=== PATIENT | male | born 1970 | race Caucasian/White ===

== ENCOUNTER 2016-03-27 12:48 | Outpatient (RCR) | payer OTHER ==
--- OUTSIDE RECORDS SUMMARY | 2016-02-12 09:40 | XMS REPORT | Continuity of Care Document ---
Author Author [facility] Organization [facility] Address Unknown Phone Unavailable Care Team Providers Care Tile Molder Name Role Phone Unknown, Unknown PCP Unavailable Source Comments Some departments are not documenting in the electronic medical record. If you do not see the information that you expected, contact Release of Information in the Health Information Management department at [phone] for further assistance in locating additional records.[facility] Active Allergies and Adverse Reactions Allergen Noted Date Severity Reactions Comments Sulfa (Sulfonamide 09/22/2014 High ANAPHYLAXIS Antibiotics) Current Medications Prescription Sig. Disp. Refills Start End Date Status Date OMEPRAZOLE PO Take by mouth daily. Active MONTELUKAST SODIUM Take by mouth daily. Active (SINGULAIR PO) amLODIPine (NORVASC) 5 mg Take 5 mg by mouth daily. Active tablet OMALIZUMAB (XOLAIR SC) Inject into area(s) as Active directed every 14 days. predniSONE (DELTASONE) 10 Take 10 mg by mouth every Active mg tablet 48 hours. cetirizine (ZYRTEC) 10 mg Take 10 mg by mouth every Active tablet morning. fluticasone (FLOVENT HFA) Inhale 2 Puffs by mouth 1 Inhaler 0 Active 220 mcg/actuation inhaler into the lungs as Needed. 16 fluticasone/salmeterol Inhale 1 Puff by mouth 3 Inhaler 0 01/29/20 Active (ADVAIR DISKUS) 500-50 into the lungs as Needed. 16 mcg inhalation disk albuterol-ipratropium Inhale 3 mL solution by 01/29/20 Active (DUO-NEB, DUO-VENT) 0.5 nebulizer as directed as 16 mg-3 mg(2.5 mg base)/3 mL Needed. nebulizer solution albuterol (VENTOLIN HFA, Inhale 2 Puffs by mouth 3 Inhaler 01/29/20 Active PROAIR HFA, PROVENTIL into the lungs every 6 16 HFA) 90 mcg/actuation hours as needed for inhaler Wheezing. albuterol (VENTOLIN HFA, Inhale 2 Puffs by mouth 01/29/20 Discontin PROAIR HFA) 90 every 6 hours as needed 16 ued mcg/actuation inhaler for Wheezing. CETIRIZINE HCL (ZYRTEC Take by mouth. 01/29/20 Discontin PO) 16 ued albuterol-ipratropium Inhale 3 mL solution by 01/29/20 Discontin (DUO-NEB, DUO-VENT) 0.5 nebulizer as directed as 16 ued mg-3 mg(2.5 mg base)/3 mL Needed. nebulizer solution fluticasone (FLOVENT HFA) Inhale 2 Puffs by mouth 1 Inhaler 3 01/29/20 Discontin 220 mcg/actuation inhaler twice daily. 16 16 ued fluticasone/salmeterol Inhale 1 Puff by mouth 01/29/20 Discontin (ADVAIR DISKUS) 500-50 into the lungs as Needed. 16 ued mcg inhalation disk predniSONE (DELTASONE) 10 60mg daily x 5 days, then 75 Tab 0 12/21/19 01/29/20 Discontin mg tablet 50mg daily x 3 days, then 16 16 ued decrease by 10mg every 3 days until off. levofloxacin (LEVAQUIN) Take 1 Tab by mouth 14 Tab 1 12/21/19 Discontin 750 mg tablet daily. 16 16 ued Active Problems Problem Noted Date Severe persistent asthma dependent on systemic steroids 01/29/2016 Last Assessment & Plan: Massive improvement both symptomatically and on spirometry while taking prednisone. Discussed importance of maintenance medications. He has failed maximal medical therapy including Advair 500/50 BID, fluticasone 220 BID, Singulair 10 mg po qd, Zyrtec 10 mg, and Xolair. Despite these medications he had a severe exacerbation at his last visit requiring antibiotics and prednisone. He has continued his prednisone and feels better however he has taken himself off his controller medications. I advised him on the importance of continuing all his controller medication as the bronchial thermoplasty requires 3 sessions with 2 weeks in between each session. He is agreeable to have bronchothermoplasty the week of Mar 17. Given his age I do not think chronic prednisone is a viable option given all the complications known to be associated with chronic prednisone therapy. -Alpha one pending -Restart Yu Cox -Continue singulair -BT Mar 17 Mild persistent asthma without complication 09/29/2014 Overview: Outside records reviewed. Methacholine positive for decrease then improvement after albuterol. L ast Assessment & Plan: Markedly worsened PFTs including Diffusion. Possible pneumonia but I hear no crackles on exam. Concern for asthma exacerbation. Offered admission but he declined. Will attempt to get CT scan precertified today given his Status. Doubt PE as he is not hypoxic. Interested in getting a non con CT chest to rule out hypersensitivity pneumonitis. -Prednisone 60 mg po qd -Levaquin 750 mg po qd. Most Recent Encounters Date Type Specialty Providers Description 03/17/2016 [facility] Pk Vega MD Severe persistent asthma Encounter 02/06/2016 Telephone Pulmonology Pk Vega MD Other - bronchial thermoplasty 02/04/2016 Telephone Pulmonology Pk Vega MD Results - normal Alpha 1 Antitrypsin level 02/04/2016 Telephone Pulmonology Pk Vega MD Prior Authorization - Bronchial Thermoplasty 01/29/2016 Office Visit Pulmonology Pk Vega MD Mild persistent asthma without complication (Primary Dx); Severe persistent asthma dependent on systemic steroids 01/29/2016 [facility] Pk Vega MD Emphysema, unspecified Encounter 01/29/2016 Prep for Case Pulmonology Pk Vega MD 12/25/2015 Telephone PulPk Maravilla MD Follow-up Phone Call 12/21/2015 [facility]iology Pk Veag MD Encounter 12/21/2015 Office Visit PulPk Maravilla MD Pneumonia due to infectious organism, unspecified laterality, unspecified part of lung (Primary Dx) 12/21/2015 [facility] Pk Vega MD Encounter 12/04/2015 Telephone Pk Clemens MD Follow-up Phone Call Social History Tobacco Use Types Packs/Day Years Used Date Former Smoker Cigarettes Quit: 04/20/1997 Last Filed Vital Signs Vital Sign Reading Time Taken Blood Pressure 140/93 01/29/2016 9:58 AM CDT Pulse 69 01/29/2016 9:58 AM CDT Temperature 36.6 C (97.8 F) 01/29/2016 9:58 AM CDT Respiratory Rate 16 01/29/2016 9:58 AM CDT Height 1.88 m (6' 2") 01/29/2016 9:58 AM CDT Weight 102.059 kg (225 lb) 01/29/2016 9:58 AM CDT Body Mass Index 28.88 01/29/2016 9:58 AM CDT Oxygen Saturation 96% 01/29/2016 9:58 AM CDT Plan of Care Date Type Specialty Providers Description 03/17/2016 Surgery Pk Vega MD Canceled BRONCHOSCOPY [address] [address] [place] [address] [phone] (Fax) Health Maintenance Due Date Last Done Comments Physical (Comprehensive) 09/26/1978 Exam Pertussis Vaccine 09/26/1982 Tetanus Vaccine 09/26/1988 Influenza Vaccine 12/20/2015 Procedures from Last 3 Months Procedure Name Priority Date/Time Associated Diagnosis Comments SPIROMETRY Routine 01/29/2016 Mild persistent asthma 12:00 AM CDT without complication Results from Last 3 Months ALPHA 1 ANTITRYPSIN PHENOTYPE (01/29/2016 9:09 AM) Component Value Range Alpha 1 Anti-Trypsin 137Comment: Reference range: 100 to 190 Unit: mg/dL [facility] Alpha 1 Antitrypsin MM Phenotype Unit: bands A single M isoform is detected. In the context of a normal [id number] concentration, this is consistent with an MM phenotype. [facility] Specimen Blood SPIROMETRY (01/29/2016)CHEST 2 VIEWS (12/21/2015 4:51 PM) Impressions Small left pleural effusion with development of interstitial opacities throughout both lungs, greatest in the left lower lobe, likely pneumonia. Approved by Adrienne Diana M.D. on 12/21/2015 5:26 PM By my electronic signature, I attest that I have personally reviewed the images for this examination and formulated the interpretations and opinions expressed in this report Finalized by JIAN ERWIN M.D. on 12/21/2015 5:26 PM. Dictated by Adrienne Diana M.D. on 12/21/2015 5:00 PM. Narrative CHEST 2 VIEWS Clinical Indication:pneumonia. Comparison: Chest radiograph dated September 29, 2014. Findings: JIAN ERWIN M.D. has personally reviewed these images and formulated the interpretations and opinions expressed in this report. The cardiac silhouette and pulmonary vasculature are within normal limits. There has been development of bilateral lower lobe interstitial opacities, greater on the left, and mild blunting of the left costophrenic angle. No pneumothorax is identified. Procedure Note Interface, Radiant Results - ThuDec 21, 2015 5:29 PM CDT CHEST 2 VIEWS Clinical Indication: pneumonia. Comparison: Chest radiograph dated September 29, 2014. Findings: JIAN ERWIN M.D. has personally reviewed these images and formulated the interpretations and opinions expressed in this report. The cardiac silhouette and pulmonary vasculature are within normal limits. There has been development of bilateral lower lobe interstitial opacities, greater on the left, and mild blunting of the left costophrenic angle. No pneumothorax is identified. IMPRESSION Small left pleural effusion with development of interstitial opacities throughout both lungs, greatest in the left lower lobe, likely pneumonia. Approved by Adrienne Diana M.D. on 12/21/2015 5:26 PM By my electronic signature, I attest that I have personally reviewed the images for this examination and formulated the interpretations and opinions expressed in this report Finalized by JIAN ERWIN M.D. on 12/21/2015 5:26 PM. Dictated by Adrienne Diana M.D. on 12/21/2015 5:00 PM.
[2016-02-12] MEDS: OMALIZUMAB SUB-Q 150 MG (XOLAIR) VIAL SQ SCH (10:32)
[2016-02-12 10:33] VITALS: BP 147/92
[2016-02-27] MEDS: OMALIZUMAB SUB-Q 150 MG (XOLAIR) VIAL SQ SCH (14:05)
[2016-02-27 14:10] VITALS: BP 142/89
[2016-03-12 13:25] VITALS: BP 139/95
[2016-03-12] MEDS: OMALIZUMAB SUB-Q 150 MG (XOLAIR) VIAL SQ SCH (13:27)
[~2016-03-27] VITALS: Ht 188 cm; Wt 98.9 kg
[~2016-03-27 12:48] MED LIST: AGM875T PO; ALBU17AE3 IH; ALBU8.5HRX IH; AMLO5TAB4 PO; AMOX-355 PO; BENZ200C25 PO; BUDE10.2 IH; CETI10CA PO; CLAR500T2 PO; DOCU-143 PO; FLT05NA16 NS; FLT4413 IH; FLUC150T PO; FLUT1DIS27 IH; FLUT9.9S NSEACH; GFN600TCR PO; GUAI473L8 PO; HYDR-3454 PO; IPRA3AMP IH; IPRA3AMP11 IH; LEVO500T69 PO; METH4TAB PO; MONT10TA21 PO; NAPR-1033 PO; OMEP20TA7 PO; ONDA8TAB13 PO; OSLT75C PO; PRD10T PO; PRED20TA PO; RT-ADVAIR1 IH; TIOT18CA2 IH
[2016-03-27] MEDS: OMALIZUMAB SUB-Q 150 MG (XOLAIR) VIAL SQ SCH (13:18)
[2016-03-27 13:34] VITALS: BP 140/96
== END 2016-05-12 | disposition home or self-care (01) ==
LOC: SDC 12:48
PROVIDERS: ATTEND Internal Medicine Critical Care Medicine
DX: J45.20 Mild intermittent asthma, uncomplicated (principal)
CPT/HCPCS: 96372

== ENCOUNTER → 2017-04-10 | Outpatient (CLI) | payer OTHER ==
--- NOTE | 2017-04-10 11:24 | Diagnostic Imaging Report ---
PROCEDURE: US Gallbladder. TECHNIQUE: Multiple real-time grayscale images were obtained over the right upper quadrant in various projections. INDICATION: Abdominal pain. FINDINGS: The visualized portions of the pancreas appear unremarkable. The liver is fairly homogeneous with no focal lesion. Hepatopetal flow in the portal vein is seen. The gallbladder demonstrates no stones or wall thickening. The CBD is 4 mm in caliber. The right kidney is 13.3 cm in length with no hydronephrosis or focal lesion. No fluid collection in the upper right abdomen is seen. Sonographic Galloway's sign is reportedly negative. IMPRESSION: Unremarkable exam. Dictated by: Dictated on workstation # [id number]
== END ==
LOC: RAD 08:17
PROVIDERS: ATTEND Nurse Practitioner Family
DX: R10.11 Right upper quadrant pain (principal)
CPT/HCPCS: 76705

== ENCOUNTER → 2017-04-22 | Outpatient (CLI) | payer OTHER ==
[~2017-04-22] MED LIST changes: +CATHETER FLUSH 10 ML SYR IV PRN
--- NOTE | 2017-04-22 12:21 | Diagnostic Imaging Report ---
CLINICAL INDICATION: Patient with abdominal pain. COMPARISON: Gallbladder ultrasound dated 04/10/2017. PROCEDURE: The patient was administered 5.14 millicuries of technetium 99m Choletec. After 60 minutes of the images, one can of Ensure was drink followed by another 60 minutes of imaging. A nuclear medicine hepatobiliary scan with ejection fraction was performed. FINDINGS: There is prompt uptake and excretion of radiotracer by the liver. Activity is visible in the gallbladder by 55 minutes and the small bowel by 20 minutes. Ejection fraction of the gallbladder is calculated at 25% (normal >35%). The gallbladder visibly empties on the scans following the ingestion of Ensure. IMPRESSION: Abnormal hepatobiliary scan with low gallbladder ejection fraction of 25%. Considerations would include gallbladder dysmotility or chronic cholecystitis. Dictated by: Dictated on workstation # [id number]
== END ==
LOC: CARD 09:46
PROVIDERS: ATTEND Family Medicine
DX: R10.11 Right upper quadrant pain (principal); R11.10 Vomiting, unspecified; K87 Disorders of gallbladder, biliary tract and pancreas in diseases classified elsewhere
CPT/HCPCS: 78227

== ENCOUNTER 2017-04-26 14:29 | Inpatient (IN) | payer OTHER ==
[~2017-04-26] VITALS: Ht 185.4 cm; Wt 90.0 kg
[2017-04-26] VITALS (7 sets, daily range): BP systolic 115–131; BP diastolic 87–102
[~2017-04-26 14:29] MED LIST changes: -CATHETER FLUSH 10 ML SYR IV PRN
--- OUTSIDE RECORDS SUMMARY | 2017-04-26 14:35 | XMS REPORT | Continuity of Care Document ---
Author Author [facility] Organization [facility] Address Unknown Phone Unavailable Care Team Providers Care Cloth Coverer Name Role Phone [employer] Unavailable Unavailable Problems Medications Allergies, Adverse Reactions, Alerts Immunizations Results Vital Signs Encounters Location Location Details Encounter Type Encounter Number Reason For Visit Attending Provider ADM Date DC Date Status Source OUTPATIENT [id number] YULIA SANTAMARIA 04/23/2016 04/23/2016 Active [facility] Joanna CHAVIS Active [facility] Procedures Plan of Care Social History Assessment and Plan Family History Advance Directives Functional Status
--- OUTSIDE RECORDS SUMMARY | 2017-04-26 14:35 | XMS REPORT | Encounter Summary ---
Author Author [facility] Organization [facility] Address Unknown Phone Unavailable Care Team Providers Care Supervisor Logging Name Role Phone PCP Unavailable Reason for Visit * Reason Comments Medication Refill Encounter Details Date Type Department Care Team Description 04/23/2017 Refill [facility] Pk Vega MD Physicians - Internal [address] [facility] [address] [place], [place] [id number] [facility] [address] [phone] [place] [address] Social History Tobacco Use Types Packs/Day Years Used Date Former Smoker Cigarettes 0.5 5 Quit: 04/20/1997 Smokeless Tobacco: Never Used Alcohol Use Drinks/Week oz/Week Comments Yes monthly Sex Assigned at Date Recorded Not on file as of this encounter Plan of Treatment Not on fileas of this encounter Visit Diagnoses Not on filein this encounter
--- OUTSIDE RECORDS SUMMARY | 2017-04-26 14:35 | XMS REPORT | Clinical Summary ---
Author Author [facility] Organization [facility] Address Unknown Phone Unavailable Care Team Providers Care Office Assistance Name Role Phone PCP Unavailable Source Comments Some departments are not documenting in the electronic medical record. If you do not see the information that you expected, contact Release of Information in the Health Information Management department at [phone] for further assistance in locating additional records.[facility] Allergies Active Allergy Reactions Severity Noted Date Comments Sulfa (Sulfonamide ANAPHYLAXIS High 09/22/2014 Antibiotics) Current Medications Prescription Sig. Disp. Refills Start End Date Status Date ALBUTEROL IN Inhale by mouth into the Active lungs. MONTELUKAST SODIUM Take by mouth. Active (SINGULAIR PO) fluticasone (FLONASE) 50 One spray to each nostril 1 Each 11 09/10/19 Active mcg/actuation nasal spray BID (per protocol; Dr. Matthieu Peña [facility]; [id number]) prednisone (DELTASONE) 10 60mg daily x 5 days, then 100 Tab 0 Active mg tablet call for 17 further instruction. fluticasone (FLOVENT HFA) Inhale 2 puffs by mouth 36 g 3 04/23/19 Active 220 mcg/actuation inhaler into the lungs twice 18 daily. FLOVENT HFA 220 INHALE TWO PUFFS BY MOUTH 12 g 11 09/30/19 04/23/19 Discontin mcg/actuation inhaler TWICE A DAY 17 18 ued Active Problems Problem Noted Date Severe persistent asthma dependent on systemic steroids 01/29/2016 Last Assessment & Plan: With increase in nasal symptoms he reports worsening of his breathing with SOB and wheezing. -Prednisone burst 40 mg po qd x5 days Mild persistent asthma without complication 09/29/2014 Overview: Outside records reviewed. Methacholine positive for decrease then improvement after albuterol. L ast Assessment & Plan: No longer well controlled see above Resolved Problems Problem Noted Date Resolved Date Deviated nasal septum 06/02/2016 10/08/2016 Chronic frontal sinusitis 04/23/2016 10/08/2016 Last Assessment & Plan: Increase symptoms worsening his asthma symptoms -Contact Dr. Stoddard's office for treatment plan Encounters Date Type Specialty Care Team Description 04/23/2017 Refill Pulmonology Pk Vega MD from Last 3 Months Family History Medical History Relation Name Comments Cancer Father Cancer Sister Relation Name Status Comments Father Alive Mother Alive Sister Social History Tobacco Use Types Packs/Day Years Used Date Former Smoker Cigarettes 0.5 5 Quit: 04/20/1997 Smokeless Tobacco: Never Used Alcohol Use Drinks/Week oz/Week Comments Yes monthly Sex Assigned at Date Recorded Not on file Last Filed Vital Signs Vital Sign Reading Time Taken Blood Pressure 137/94 12/26/2016 3:32 PM CDT Pulse 84 12/26/2016 3:32 PM CDT Temperature 37.3 C (99.2 F) 12/26/2016 3:32 PM CDT Respiratory Rate 17 12/26/2016 3:32 PM CDT Oxygen Saturation 95% 12/26/2016 3:32 PM CDT Inhaled Oxygen - - Concentration Weight 97.3 kg (214 lb 6.4 oz) 12/26/2016 3:32 PM CDT Height 188 cm (6' 2") 12/26/2016 3:32 PM CDT Body Mass Index 27.53 12/26/2016 3:32 PM CDT Plan of Treatment Health Maintenance Due Date Last Done Comments PHYSICAL (COMPREHENSIVE) 09/26/1978 EXAM PERTUSSIS VACCINE 09/26/1982 TETANUS VACCINE 09/26/1988 INFLUENZA VACCINE 11/18/2016 Implants Implanted Type Area Dental Officer Device Expiration Model / Identifier Date Serial / Lot Stent Nasal Propel Mometasone Left: INTERSECT ENT 12/10/2017 13266 / Furoate 370 Mcg Sinus [id number] / Implanted: Qty: 1 on 06/02/2016 by [id number] Ralf Stoddard MD Stent Nasal Propel Mometasone Right: INTERSECT ENT 12/10/2017 [id number] / Furoate 370 Mcg Sinus [id number] / Implanted: Qty: 1 on 06/02/2016 by [id number] Ralf Stoddard MD Stent Nasal [place] Collagen [id number] / Hyaluronic Acid Dressing NA / Implanted: Qty: 1 on 06/02/2016 by Ralf Lau MD Results Not on filefrom Last 3 Months
--- OUTSIDE RECORDS SUMMARY | 2017-04-26 14:36 | XMS REPORT | Continuity of Care Document ---
Author Author [facility] Organization [facility] Address Unknown Phone Unavailable Allergies Active Description Code Type Severity Reaction Onset Reported/Identified Relationship to Patient Clinical Status Yes [id number] (SULFA (SULFONAMIDE ANTIBIOTICS)) [id number] (SULFA (SULFONAMIDE ANTIBIOTICS)) Mild N/A 04/12/2009 Yes Sulfa (Sulfonamide Antibiotics) [id number] Drug Allergy Unknown N/A 2014 Medications There is no data. Problems Date Dx Coded Attending Type Code Diagnosis Diagnosed By 03/21/2014 DARRIAN NEWTON, KULWINDER R Ot 786.2 03/21/2014 DARRIAN NEWTON, KULWINDER R Ot 786.2 03/21/2014 DARRIAN NEWTON, KULWINDER R Ot 786.2 03/28/2014 DARRIAN NEWTON, KULWINDER R Ot 786.2 04/27/2014 DARRIAN NEWTON, KULWINDER R Ot 786.2 05/14/2014 DARRIAN NEWTON, KULWINDER R Ot 461.8 OTHER ACUTE SINUSITIS 05/14/2014 DARRIAN NEWTON, KULWINDER R Ot 466.0 ACUTE BRONCHITIS 05/14/2014 DARRIAN NEWTON, KULWINDER R Ot 473.8 05/14/2014 DARRIAN NEWTON, KULWINDER R Ot 519.11 05/14/2014 DARRIAN NEWTON, KULWINDER R Ot 799.02 HYPOXEMIA 05/14/2014 DARRIAN NEWTON, KULWINDER R Ot V15.82 HISTORY OF TOBACCO USE 05/25/2014 CORNEL CORTES DO Ot 477.9 05/25/2014 CORNEL CORTES DO Ot 486 05/25/2014 CORNEL CORTES DO Ot 490 06/01/2014 DARRIAN NEWTON, KULWINDER R Ot 473.9 06/02/2014 DARRIAN NEWTON, KULWINDER R Ot 786.2 06/02/2014 CORNEL CORTES DO Ot 477.9 06/02/2014 CORNEL CORTES DO Ot 486 06/02/2014 CORNEL CORTES DO Ot 490 06/02/2014 DARRIAN NEWTON, KULWINDER R Ot 473.9 06/13/2014 DARRIAN NEWTON, KULWINDER R Ot 473.9 06/14/2014 DARRIAN NEWTON, KULWINDER R Ot 473.9 06/15/2014 Ot 470 06/15/2014 Ot 473.9 06/15/2014 Ot V72.83 06/15/2014 Ot V74.8 06/16/2014 Ot 470 06/16/2014 Ot 473.9 06/16/2014 Ot V72.83 06/16/2014 Ot V74.8 06/16/2014 Ot 473.0 06/16/2014 Ot 473.1 06/16/2014 Ot 473.2 06/16/2014 Ot 473.3 06/16/2014 Ot 478.0 10/02/2014 CORNEL CORTES DO Ot 490 10/02/2014 CORNEL CORTES DO Ot 786.09 10/12/2014 CORNEL CORTES DO Ot 493.02 10/12/2014 CORNEL CORTES DO Ot 786.09 11/15/2014 CORNEL CORTES DO Ot 786.09 RESPIRATORY ABNORM NEC 12/06/2014 CORNEL CORTES DO Ot 493.02 12/06/2014 CORNEL CORTES DO Ot 786.09 01/04/2015 RIKY NEWTON, MARY ALICE Toth Ot 401.9 01/04/2015 RIKY NEWTON, MARY ALICE Toth Ot 786.09 01/04/2015 RIKY NEWTON, MARY ALICE Toth Ot 794.31 01/17/2015 CORNEL CORTES DO Ot 493.00 EXTRINSIC ASTHMA, NOS 01/17/2015 CORNEL CORTES DO Ot 786.09 RESPIRATORY ABNORM NEC 01/23/2015 CORNEL CORTES DO Ot 493.00 01/23/2015 CORNEL CORTES DO Ot 786.09 01/23/2015 CORNEL CORTES DO Ot 493.00 01/23/2015 CORNEL CORTES DO Ot 786.09 02/06/2015 CORNEL CORTES DO Ot 493.00 02/06/2015 CORNEL CORTES DO Ot 786.09 02/15/2015 CORNEL CORTES DO Ot 493.00 02/15/2015 CORNEL CORTES DO Ot 786.09 02/20/2015 CORNEL CORTES DO Ot J45.20 03/06/2015 CORNEL CORTES DO Ot J45.20 03/07/2015 CORNEL CORTES DO Ot J45.20 03/19/2015 CORNEL CORTES DO Ot J30.9 03/19/2015 CORNEL CORTES DO Ot J45.909 03/19/2015 CORNEL CORTES DO Ot R06.00 03/20/2015 CORNEL CORTES DO Ot J45.20 03/30/2015 CORNEL CORTES DO Ot G47.10 HYPERSOMNIA, UNSPECIFIED 03/30/2015 CORNEL CORTES DO Ot I10 ESSENTIAL (PRIMARY) HYPERTENSION 03/30/2015 CORNEL CORTES DO Ot R06.83 SNORING 04/03/2015 CORNEL CORTES DO Ot J45.20 04/17/2015 CORNEL CORTES DO Ot J45.20 04/17/2015 CORNEL CORTES DO Ot J45.20 04/23/2015 CORNEL CORTES DO Ot J45.20 MILD INTERMITTENT ASTHMA, UNCOMPLICATED 04/30/2015 CORNEL CORTES DO Ot J45.20 04/30/2015 CORNEL CORTES DO Ot J45.20 05/01/2015 CORNEL CORTES DO Ot J45.20 05/15/2015 CORNEL CORTES DO Ot J45.20 05/15/2015 CORNEL CORTES DO Ot J45.20 05/15/2015 CORNEL CORTES DO Ot J45.20 05/17/2015 CORNEL CORTES DO Ot 493.02 05/17/2015 CORNEL CORTES DO Ot 786.09 05/17/2015 RIKY NEWTON, MARY ALICE Toth Ot 401.9 05/17/2015 RIKY NEWTON, MARY ALICE Toth Ot 786.09 05/17/2015 RIKY NEWTON, MARY ALICE Toth Ot 794.31 05/17/2015 CORNEL CORTES DO Ot J30.9 05/17/2015 CORNEL CORTES DO Ot J45.909 05/17/2015 CORNEL CORTES DO Ot R06.00 05/17/2015 CORNEL CORTES DO Ot J45.20 05/29/2015 CORNEL CORTES DO Ot J45.20 06/01/2015 JEANCARLOS SARGENT DO Kenisha Ot K60.2 06/01/2015 SARGENT ANNMARIE CORDEROELIER De Ot K92.1 06/01/2015 JEANCARLOS SARGENT DO Kenisha Ot Z01.818 06/05/2015 ANNMARIE SARGENT DOELIER De Ot K60.2 ANAL FISSURE, UNSPECIFIED 06/12/2015 DARRIAN NEWTON, KULWINDER Sanders Ot R10.32 06/12/2015 CORNEL CORTES DO Ot J45.20 06/12/2015 CORNEL CORTES DO Ot J45.20 06/13/2015 CORNEL CORTES DO Ot J45.20 06/16/2015 CHERRIE JOHNSTON Ot J09.X3 INFLUENZA DUE TO IDENT NOVEL INFLUENZA A 06/16/2015 CHERRIE JOHNSTON Ot R31.2 OTHER MICROSCOPIC HEMATURIA 06/27/2015 CORNEL CORTES DO Ot J45.20 06/27/2015 CORNEL CORTES DO Ot J45.20 07/05/2015 CORNEL CORTES DO Ot J45.20 07/10/2015 CORNEL CORTES DO Ot J45.20 07/10/2015 CORNEL CORTES DO Ot J45.20 07/24/2015 CORNEL CORTES DO Ot J45.20 07/24/2015 CORNEL CORTES DO Ot J45.20 07/25/2015 SHAD NOYOLA APRN Ot J30.9 07/25/2015 SHAD NOYOLA APRN Ot J45.901 07/29/2015 CORNEL CORTES DO Ot J45.20 MILD INTERMITTENT ASTHMA, UNCOMPLICATED 07/30/2015 CORNEL CORTES DO Ot J45.20 07/30/2015 CORNEL CORTES DO Ot J45.20 08/08/2015 CORNEL CORTES DO Ot J45.20 MILD INTERMITTENT ASTHMA, UNCOMPLICATED 08/09/2015 CORNEL CORTES DO Ot J45.20 MILD INTERMITTENT ASTHMA, UNCOMPLICATED 08/20/2015 CORNEL CORTES DO Ot J45.20 MILD INTERMITTENT ASTHMA, UNCOMPLICATED 08/23/2015 ARLYN CORTES DOSON M Ot J45.20 MILD INTERMITTENT ASTHMA, UNCOMPLICATED 08/23/2015 ARLYN CORTES DOSON M Ot J45.20 MILD INTERMITTENT ASTHMA, UNCOMPLICATED 08/30/2015 SHAD NOYOLA FLIGHT DISPATCHER Ot J30.9 ALLERGIC RHINITIS, UNSPECIFIED 08/30/2015 SHAD NOYOLA FLIGHT DISPATCHER Ot J45.901 UNSPECIFIED ASTHMA WITH (ACUTE) EXACERBA 09/06/2015 ARLYN CORTES DOSON M Ot J45.20 MILD INTERMITTENT ASTHMA, UNCOMPLICATED 09/06/2015 ARLYN CORTES DOSON M Ot J45.20 MILD INTERMITTENT ASTHMA, UNCOMPLICATED 09/06/2015 ARLYN CORTES DOSON M Ot J45.20 MILD INTERMITTENT ASTHMA, UNCOMPLICATED 09/06/2015 ARLYN CORTES DOSON M Ot J45.20 MILD INTERMITTENT ASTHMA, UNCOMPLICATED 09/06/2015 ARLYN CORTES DOSON M Ot J45.20 MILD INTERMITTENT ASTHMA, UNCOMPLICATED 09/19/2015 ARLYN CORTES DOSON M Ot J45.20 MILD INTERMITTENT ASTHMA, UNCOMPLICATED 09/19/2015 ARLYN CORTES DOSON M Ot J45.20 MILD INTERMITTENT ASTHMA, UNCOMPLICATED 09/20/2015 ARLYN CORTES DOSON M Ot J45.20 MILD INTERMITTENT ASTHMA, UNCOMPLICATED 09/26/2015 ARLYN CORTES DOSON M Ot J45.20 MILD INTERMITTENT ASTHMA, UNCOMPLICATED 10/05/2015 ARLYN CORTES DOSON M Ot J45.20 MILD INTERMITTENT ASTHMA, UNCOMPLICATED 10/11/2015 ARLYN CORTES DOSON M Ot J45.20 MILD INTERMITTENT ASTHMA, UNCOMPLICATED 10/11/2015 ARLYN CORTES DOSON M Ot J45.20 MILD INTERMITTENT ASTHMA, UNCOMPLICATED 10/12/2015 ARLYN CORTES DOSON M Ot J45.20 MILD INTERMITTENT ASTHMA, UNCOMPLICATED 10/12/2015 ARLYN CORTES DOSON M Ot J45.20 MILD INTERMITTENT ASTHMA, UNCOMPLICATED 10/30/2015 ARLYN CORTES DOSON M Ot J45.20 MILD INTERMITTENT ASTHMA, UNCOMPLICATED 10/31/2015 ARLYN CORTES DOSON M Ot J45.20 MILD INTERMITTENT ASTHMA, UNCOMPLICATED 11/06/2015 ARLYN CORTES DOSON M Ot J45.20 MILD INTERMITTENT ASTHMA, UNCOMPLICATED 11/06/2015 ARLYN CORTES DOSON M Ot J45.20 MILD INTERMITTENT ASTHMA, UNCOMPLICATED 11/06/2015 CORNEL CORTES DO M Ot J45.20 MILD INTERMITTENT ASTHMA, UNCOMPLICATED 11/07/2015 ARLYN CORTES DOSON M Ot J45.20 MILD INTERMITTENT ASTHMA, UNCOMPLICATED 11/13/2015 CORNEL CORTES DO M Ot J45.20 MILD INTERMITTENT ASTHMA, UNCOMPLICATED 11/13/2015 CORNEL CORTES DO M Ot J45.20 MILD INTERMITTENT ASTHMA, UNCOMPLICATED 11/13/2015 ARLYN CORTES DOSON M Ot J45.20 MILD INTERMITTENT ASTHMA, UNCOMPLICATED 11/13/2015 CORNEL CORTES DO M Ot J45.20 MILD INTERMITTENT ASTHMA, UNCOMPLICATED 11/13/2015 ARLYN CORTES DOSON M Ot J45.20 MILD INTERMITTENT ASTHMA, UNCOMPLICATED 11/13/2015 ARLYN CORTES DOSON M Ot J45.20 MILD INTERMITTENT ASTHMA, UNCOMPLICATED 11/14/2015 CORNEL CORTES DO M Ot J45.20 MILD INTERMITTENT ASTHMA, UNCOMPLICATED 11/16/2015 ARLYN CORTES DOSON M Ot J45.20 MILD INTERMITTENT ASTHMA, UNCOMPLICATED 11/29/2015 ARLYN CORTES DOSON M Ot J45.20 MILD INTERMITTENT ASTHMA, UNCOMPLICATED 11/29/2015 ARLYN CORTES DOSON M Ot J45.20 MILD INTERMITTENT ASTHMA, UNCOMPLICATED 11/29/2015 ARLYN CORTES DOSON M Ot J45.20 MILD INTERMITTENT ASTHMA, UNCOMPLICATED 12/10/2015 ARLYN CORTES DOSON M Ot J45.20 MILD INTERMITTENT ASTHMA, UNCOMPLICATED 12/13/2015 ARLYN CORTES DOSON M Ot J45.20 MILD INTERMITTENT ASTHMA, UNCOMPLICATED 12/13/2015 ARLYN CORTES DOSON M Ot J45.20 MILD INTERMITTENT ASTHMA, UNCOMPLICATED 12/13/2015 ARLYN CORTES DOSON M Ot J45.20 MILD INTERMITTENT ASTHMA, UNCOMPLICATED 12/17/2015 ARLYN CORTES DOSON M Ot J45.20 MILD INTERMITTENT ASTHMA, UNCOMPLICATED 12/27/2015 ARLYN CORTES DOSON M Ot J45.20 MILD INTERMITTENT ASTHMA, UNCOMPLICATED 01/03/2016 MICHAEL AVILA Ot I10 ESSENTIAL (PRIMARY) HYPERTENSION 01/03/2016 MICHAEL AVILA Ot J45.998 OTHER ASTHMA 01/03/2016 MICHAEL AVILA Ot R06.2 WHEEZING 01/03/2016 MICHAEL AVILA Ot R06.83 SNORING 01/09/2016 CORNEL CORTES DO Ot J45.20 MILD INTERMITTENT ASTHMA, UNCOMPLICATED 01/14/2016 CORNEL CORTES DO M Ot J45.20 MILD INTERMITTENT ASTHMA, UNCOMPLICATED 01/14/2016 CORNEL CORTES DO Ot J45.20 MILD INTERMITTENT ASTHMA, UNCOMPLICATED 01/16/2016 MICHAEL AVILA Ot I10 ESSENTIAL (PRIMARY) HYPERTENSION 01/16/2016 MICHAEL AVILA Ot J45.998 OTHER ASTHMA 01/16/2016 MICHAEL AVILA Ot R06.2 WHEEZING 01/16/2016 MICHAEL AVILA Ot R06.83 SNORING 01/30/2016 CORNEL CORTES DO M Ot J45.20 MILD INTERMITTENT ASTHMA, UNCOMPLICATED 01/30/2016 CORNEL CORTES DO M Ot J45.20 MILD INTERMITTENT ASTHMA, UNCOMPLICATED 02/11/2016 CORNEL CORTES DO M Ot J45.20 MILD INTERMITTENT ASTHMA, UNCOMPLICATED 02/12/2016 CORNEL CORTES DO M Ot J45.20 MILD INTERMITTENT ASTHMA, UNCOMPLICATED 02/12/2016 CORNEL CORTES DO M Ot J45.20 MILD INTERMITTENT ASTHMA, UNCOMPLICATED 02/12/2016 CORNEL CORTES DO M Ot J45.20 MILD INTERMITTENT ASTHMA, UNCOMPLICATED 02/12/2016 CORNEL CORTES DO M Ot J45.20 MILD INTERMITTENT ASTHMA, UNCOMPLICATED 02/12/2016 CORNEL CORTES DO M Ot J45.20 MILD INTERMITTENT ASTHMA, UNCOMPLICATED 02/13/2016 CORNEL CORTES DO M Ot J45.20 MILD INTERMITTENT ASTHMA, UNCOMPLICATED 02/17/2016 CORNEL CORTES DO M Ot J45.20 MILD INTERMITTENT ASTHMA, UNCOMPLICATED 02/20/2016 CORNEL CORTES DO M Ot J45.20 MILD INTERMITTENT ASTHMA, UNCOMPLICATED 02/27/2016 CORNEL CORTES DO M Ot J45.20 MILD INTERMITTENT ASTHMA, UNCOMPLICATED 02/27/2016 CORNEL CORTES DO M Ot J45.20 MILD INTERMITTENT ASTHMA, UNCOMPLICATED 03/12/2016 CORNEL CORTES DO M Ot J45.20 MILD INTERMITTENT ASTHMA, UNCOMPLICATED 03/17/2016 CORNEL CORTES DO M Ot J45.20 MILD INTERMITTENT ASTHMA, UNCOMPLICATED 03/26/2016 CORNEL CORTES DO M Ot J45.20 MILD INTERMITTENT ASTHMA, UNCOMPLICATED 03/27/2016 CORNEL CORTES DO Ot J45.20 MILD INTERMITTENT ASTHMA, UNCOMPLICATED 03/27/2016 CORNEL CORTES DO Ot J45.20 MILD INTERMITTENT ASTHMA, UNCOMPLICATED 04/03/2016 CORNEL CORTES DO Ot J45.20 MILD INTERMITTENT ASTHMA, UNCOMPLICATED 05/12/2016 CORNEL CORTES DO Ot J45.20 MILD INTERMITTENT ASTHMA, UNCOMPLICATED 04/09/2017 CORNEL CORTES DO Ot 493.02 EXTRINSIC ASTHMA, W (ACUTE) EXACERBATION 04/09/2017 CORNEL CORTES DO Ot 786.09 RESPIRATORY ABNORM NEC 04/09/2017 RIKY NEWTON, MARY ALICE Toth Ot 401.9 HYPERTENSION NOS 04/09/2017 RIKY NEWTON, MARY ALICE Toth Ot 786.09 RESPIRATORY ABNORM NEC 04/09/2017 RIKY NEWTON, MARY ALICE Toth Ot 794.31 ABNORM ELECTROCARDIOGRAM 04/09/2017 CORNEL CORTES DO Ot J30.9 ALLERGIC RHINITIS, UNSPECIFIED 04/09/2017 CORNEL CORTES DO Ot J45.909 UNSPECIFIED ASTHMA, UNCOMPLICATED 04/09/2017 CORNEL CORTES DO Ot R06.00 DYSPNEA, UNSPECIFIED 04/09/2017 DARRIAN NEWTON, KULWINDER R Ot R10.32 LEFT LOWER QUADRANT PAIN 04/09/2017 JEANCARLOS SARGENT DO Ot K60.2 ANAL FISSURE, UNSPECIFIED 04/09/2017 JEANCARLOS SARGENT DO Ot K92.1 MELENA 04/09/2017 JEANCARLOS SARGENT DO Ot Z01.818 ENCOUNTER FOR OTHER PREPROCEDURAL EXAMIN 04/09/2017 SHAD NOYOLA APRN Ot J30.9 ALLERGIC RHINITIS, UNSPECIFIED 04/09/2017 SHAD NOYOLA APRN Ot J45.901 UNSPECIFIED ASTHMA WITH (ACUTE) EXACERBA 04/09/2017 MICHAEL AVILA Ot I10 ESSENTIAL (PRIMARY) HYPERTENSION 04/09/2017 MICHAEL AVILA Ot J45.998 OTHER ASTHMA 04/09/2017 MICHAEL AVILA Ot R06.2 WHEEZING 04/09/2017 MICHAEL AVILA Ot R06.83 SNORING 04/09/2017 CORNEL CORTES DO, Ot J45.20 MILD INTERMITTENT ASTHMA, UNCOMPLICATED 04/15/2017 SOPHIA LOCO APRN Ot R10.11 RIGHT UPPER QUADRANT PAIN Procedures There is no data. Results There is no data. Encounters ACCT No. Visit Date/Time Discharge Status Pt. Type Provider Facility Loc./Unit Complaint [id number] 04/10/2017 08:17:00 04/10/2017 23:59:59 CLS Outpatient SOPHIA LOCO APRN [facility] RAD ABD PAIN [id number] 05/13/2016 13:00:00 05/13/2016 23:59:59 CLS Preadmit CORNEL CORTES DO [facility] ASTHMA,DYSPNEA [id number] 03/27/2016 12:48:00 05/12/2016 00:01:00 DIS Outpatient CORNEL CORTES DO [facility] ASTHMA,DYSPNEA [id number] 01/30/2016 10:38:00 02/11/2016 00:01:00 DIS Outpatient CORNEL CORTES DO [facility] ASTHMA,DYSPNEA [id number] 01/02/2016 08:03:00 01/02/2016 23:59:59 CLS Outpatient MICHAEL AVILA [facility] LAB HTN, ASTHMA, SNORING [id number] 10/30/2015 16:50:00 11/06/2015 00:01:00 DIS Outpatient CORNEL CORTES DO [facility] ASTHMA,DYSPNEA [id number] 07/24/2015 12:50:00 07/29/2015 00:01:00 DIS Outpatient CORNEL CORTES DO [facility] ASTHMA,DYSPNEA [id number] 07/24/2015 13:24:00 07/24/2015 23:59:59 CLS Outpatient SHAD NOYOLA APRN [facility] LAB ALLERGIC RHINITIS, ASTHMA, BRONCHITIS [id number] 06/16/2015 11:26:00 06/16/2015 15:09:00 DIS Emergency CHERRIE JOHNSTON [facility] ER FEVER/VOMITING [id number] 06/05/2015 07:00:00 06/05/2015 09:03:00 DIS Outpatient JEANCARLOS SARGENT DO [facility] SCREENING,BLOOD IN STOOLS [id number] 05/31/2015 05:36:00 05/31/2015 23:59:59 CLS Outpatient JEANCARLOS SARGENT DO [facility] PREOP BLOOD IN STOOLS [id number] 05/17/2015 08:39:00 05/17/2015 23:59:59 CLS Outpatient KULWINDER COLMENARES MD [facility] RAD ABD PAIN [id number] 04/17/2015 11:35:00 04/23/2015 00:01:00 DIS Outpatient CORNEL CORTES DO [facility] ASTHMA,DYSPNEA [id number] 03/29/2015 19:55:00 03/30/2015 06:30:00 DIS Outpatient CORNEL CORTES DO [facility] SLEEP SNORING, HYPERTENSION, EXCESSIVE SLEEPINESS [id number] 03/02/2015 14:50:00 03/02/2015 23:59:59 CLS Outpatient CORNEL CORTES DO [facility] RAD ASTHMA,ALLERGIC RHINITIS, DYSPNEA [id number] 01/08/2015 12:00:00 01/17/2015 00:01:00 DIS Outpatient CORNEL CORTES DO [facility] ASTHMA,DYSPNEA [id number] 12/20/2014 13:36:00 12/20/2014 23:59:59 CLS Outpatient MARY ALICE LAN MD [facility] CARD DYSPNEA,ABNORMAL EKG, HTN [id number] 12/07/2014 00:12:00 12/07/2014 23:59:59 CLS Preadmit CORNEL CORTES DO [facility] RAD ASTHMA,DYSPNEA,ALLERGIC RHINITIS [id number] 09/07/2014 14:46:00 12/06/2014 00:01:00 DIS Outpatient CORNEL CORTES DO [facility] RAD [id number] 11/15/2014 14:39:00 11/15/2014 14:54:00 DIS Outpatient CORNEL CORTES DO [facility] SLEEP OBSERVED APNEA, SNORING , EDS, AM HEADACHE [id number] 08/23/2014 15:45:00 08/23/2014 23:59:59 CLS Outpatient CORNEL CORTES DO [facility] RT [id number] 06/01/2014 08:42:00 06/01/2014 23:59:59 CLS Outpatient KULWINDER COLMENARES MD [facility] RAD [id number] 05/10/2014 14:55:00 05/14/2014 10:15:00 DIS Inpatient KULWINDER COLMENARES MD [facility] 4TH HYPOXIA,BRONCHOSPASM, PANSINUSITISS [id number] 04/27/2014 09:57:00 04/27/2014 23:59:59 CLS Outpatient CORNEL CORTES DO [facility] RAD [id number] 03/08/2014 10:43:00 03/08/2014 23:59:59 CLS Outpatient KULWINDER COLMENARES MD [facility] RAD [id number] 02/06/2014 12:28:00 02/06/2014 23:59:59 CLS Outpatient [id number] 12/22/2013 01:18:00 12/22/2013 02:43:00 DIS Emergency [id number] 06/16/2014 07:22:00 Document Registration [id number] 06/07/2014 15:43:00 Document Registration
--- NOTE | 2017-04-26 14:56 | ED Abdominal Pain ---
General Chief Complaint: Rect Problems Stated Complaint: BLOOD IN STOOL, ABD PAIN Nursing Triage Note: PT STATES THAT HE HAD DIARRHEA THE LAST THREE MONTHS SINCE HIS GALL BLADDER HAS BEEN BAD, BUT TODAY HAD BLOODY DIARRHEA FOR THE FIRST TIME. PT ALSO COMPLAINS OF LOWER ABDOMINAL PAIN AT THIS TIME. Sepsis Screen: No Definite Risk Source of Information: Patient Exam Limitations: No Limitations History of Present Illness Time Seen By Provider: 14:53 Initial Comments To ER with reports of 2 episodes of large volume bright red bloody diarrhea suprapubic pain that began today at about noon. 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 Penn. He states that amount of blood was very minute and this pain and the quantity of blood is very different. He had an abnormal Hepatobiliary scan on 04/22/17 found to have ejection fraction of 25%. He had this done because of some ongoing abdominal discomfort and diarrhea (nonbloody until today). He does have asthma and did have to use his rescue inhaler once today. On arrival to ER heart rate is 120 to 130 sinus, blood pressure is 130 systolic and oxygen saturation is 93-94% on room air. 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 She states that he is unintentionally lost about 40 pounds over the past few months because of no appetite. Timing/Duration: Getting Worse, Intermittent Severity/Quality: Cramping Location: Suprapubic Allergies and Home Medications Allergies Coded Allergies: Sulfa (Sulfonamide Antibiotics) (Unverified Allergy, Unknown, 05/10/14) Home Medications Albuterol Sulfate 8 Gm Hfa.aer.ad, 2 PUFF IH QID PRN for SHORTNESS OF BREATH, ( Reported) Amlodipine Besylate 5 Mg Tablet, 5 MG PO DAILY, (Reported) Cetirizine HCl 10 Mg Capsule, 10 MG PO DAILY, (Reported) Docusate Sodium 100 Mg Capsule, 100 MG PO DAILY, (Reported) Fluticasone Propionate 9.9 Ml [place].susp, 2 SPRAY NSEACH DAILY, (Reported) Fluticasone/Salmeterol 1 Each Blst.w.dev, 1 EACH IH BID, (Reported) Montelukast Sodium 10 Mg Tablet, 10 MG PO HS, (Reported) Naproxen Sodium 220 Mg Tablet, 220 MG PO BID PRN for PAIN, (Reported) Omeprazole 20 Mg Tablet.dr, 20 MG PO DAILY, (Reported) Ondansetron 8 Mg Tab.rapdis, 8 MG PO Q8H PRN for NAUSEA/VOMITING, #10 Ref 0 Prescribed by: CHERRIE TRACY on 06/16/15 1220 Oseltamivir Phosphate 75 Mg Cap, 75 MG PO BID, #10 Ref 0 Prescribed by: CHERRIE TRACY on 06/16/15 1220 Prednisone 10 Mg Tab, 10 MG PO every other day, (Reported) Tiotropium [place] 1 Inh Aerp, 1 INH IH UD, (Reported) Review of Systems Constitutional: see HPI, No chills, No fever EENTM: No Symptoms Reported Respiratory: See HPI, Cough Cardiovascular: No Symptoms Reported Gastrointestinal: See HPI, Abdominal Pain Genitourinary: No Symptoms Reported Musculoskeletal: no symptoms reported Skin: no symptoms reported Psychiatric/Neurological: No Symptoms Reported Endocrine: No Symptoms Reported Past Ueopdcs-Witpeo-Ylpfqt Hx Patient Social History Alcohol Use: Occasionally Uses Alcohol Beverage of Choice: Wirt Recreational Drug Use: No Smoking Status: Former Smoker Type Used: Cigarettes 2nd Hand Smoke Exposure: No Recent Foreign Travel: No Contact w/Someone Who Travel: No Recent Infectious Disease Expo: No Recent Hopitalizations: No Physical Abuse: No Sexual Abuse: No Mistreated: No Fear: No Immunizations Up To Date Tetanus Booster (TDap): Unknown PED Vaccines UTD: No Date of Influenza Vaccine: Apr 04, 2016 Seasonal Allergies Seasonal Allergies: No Surgeries History of Surgeries: Yes (sinus sx) Surgeries: Appendectomy Respiratory History of Respiratory Disorde: Yes Respiratory Disorders: Asthma Currently Using CPAP: No Currently Using BIPAP: No Cardiovascular History of Cardiac Disorders: Yes Cardiac Disorders: Hypertension Neurological History of Neurological Disord: No Reproductive System Hx Reproductive Disorders: No Sexually Transmitted Disease: No HIV/AIDS: No Genitourinary History of Genitourinary Disor: No Gastrointestinal History of Gastrointestinal Di: No Musculoskeletal History of Musculoskeletal Dis: No Endocrine History of Endocrine Disorders: No HEENT History of HEENT Disorders: No Cancer History of Cancer: No Psychosocial History of Psychiatric Problem: No Suicide Risk Score: 0 Integumentary History of Skin or Integumenta: No Blood Transfusions History of Blood Disorders: No Adverse Reaction to a Blood Tr: No Family Medical History Significant Family History: No Pertinent Family Hx Family Medial History: Hypertension 19 FATHER Neoplasm G8 SISTER Prostate cancer 19 FATHER Physical Exam Vital Signs VS - Last 72 Hours, by Label 04/26/17 14:40 Temp 98.4 Pulse 127 Resp 18 B/P (MAP) 127/100 (109) Pulse Ox 99 O2 Delivery Room Air Capillary Refill : Less Than 3 Seconds General Appearance: WD/WN, no apparent distress HEENT: PERRL/EOMI, normal ENT inspection Neck: non-tender, full range of motion Respiratory: normal breath sounds, no respiratory distress, no accessory muscle use, No respiratory distress, No decreased breath sounds, No accessory muscle use, No crackles Cardiovascular: tachycardia Gastrointestinal: normal bowel sounds, non tender, soft Neurologic/Psychiatric: alert, normal mood/affect, oriented x 3 Skin: normal color, warm/dry Progress/Results/Core Measures Results/Orders Lab Results Laboratory Tests Test 04/26/17 15:17 Range/Units White Blood Count 12.3 H 4.3-11.0 10^3/uL Red Blood Count 4.81 4.35-5.85 10^6/uL Hemoglobin 13.7 13.3-17.7 G/DL Hematocrit 41 40-54 % Mean Corpuscular Volume 84 80-99 FL Mean Corpuscular Hemoglobin 29 25-34 PG Mean Corpuscular Hemoglobin Concent 34 32-36 G/DL Red Cell Distribution Width 12.4 10.0-14.5 % Platelet Count 350 130-400 10^3/uL Mean Platelet Volume 10.2 7.4-10.4 FL Neutrophils (%) (Auto) 50 42-75 % Lymphocytes (%) (Auto) 14 12-44 % Monocytes (%) (Auto) 9 0-12 % Eosinophils (%) (Auto) 27 H 0-10 % Basophils (%) (Auto) 1 0-10 % Neutrophils # (Auto) 6.1 1.8-7.8 X 10^3 Lymphocytes # (Auto) 1.7 1.0-4.0 X 10^3 Monocytes # (Auto) 1.2 H 0.0-1.0 X 10^3 Eosinophils # (Auto) 3.3 H 0.0-0.3 10^3/uL Basophils # (Auto) 0.1 0.0-0.1 10^3/uL Erythrocyte Sedimentation Rate 57 H 0-15 MM/HR Sodium Level 139 135-145 MMOL/L Potassium Level 3.6 3.6-5.0 MMOL/L Chloride Level 106 98-107 MMOL/L Carbon Dioxide Level 21 21-32 MMOL/L Anion Gap 12 5-14 MMOL/L Blood Urea Nitrogen 10 7-18 MG/DL Creatinine 0.96 0.60-1.30 MG/DL Estimat Glomerular Filtration Rate > 60 BUN/Creatinine Ratio 10 Glucose Level 105 70-105 MG/DL Calcium Level 9.0 8.5-10.1 MG/DL Total Bilirubin 0.4 0.1-1.0 MG/DL Aspartate Amino Transf (AST/SGOT) 20 5-34 U/L Alanine Aminotransferase (ALT/SGPT) 17 0-55 U/L Alkaline Phosphatase 129 40-136 U/L C-Reactive Protein High Sensitivity 3.54 H 0.00-0.50 MG/DL Total Protein 7.8 6.4-8.2 GM/DL Albumin 3.4 3.2-4.5 GM/DL Micro Results Microbiology 04/26/17 C. difficile GDH Antigen & Toxins - Final, Resulted 04/26/17 Stool Culture, Resulted Pending My Orders Orders - UDAY BARRIENTOS APRN Cbc With Automated Diff (04/26/17 14:48) Comprehensive Metabolic Panel (04/26/17 14:48) Ua Culture If Indicated (04/26/17 14:48) Saline Lock/Iv-Start (04/26/17 14:48) Ct Abdomen/Pelvis W (04/26/17 14:48) Ns Iv 1000 Ml (Sodium Chloride 0.9%) (04/26/17 15:00) Ketorolac Injection (Toradol Injection) (04/26/17 15:00) Iohexol Injection (Omnipaque 350 Mg/Ml 1 (04/26/17 15:00) Ns (Ivpb) (Sodium Chloride 0.9% Ivpb Bag (04/26/17 15:00) Stool Culture (04/26/17 15:24) C Difficile Ag + Toxin A/B. (04/26/17 15:24) Type And Screen (04/26/17 15:33) Red Cells Leukocytes Reduced (04/26/17 15:33) Erythrocyte Sedimentation Rate (04/26/17 15:36) Hs C Reactive Protein (04/26/17 15:36) Levalbuterol (Non-Formulary) (Xopenex (N (04/26/17 22:00) Parasite Complete Exam Stool (04/26/17 15:42) Medications Given in ED Current Medications Medications Dose Ordered Sig/Michelle Route Start Time Stop Time Status Last Admin Dose Admin Iohexol 100 ml ONCE ONCE IV 04/26/17 15:00 04/26/17 15:01 DC 04/26/17 16:00 100 ML Ketorolac Tromethamine 30 mg ONCE ONCE IVP 04/26/17 15:00 04/26/17 15:01 DC 04/26/17 15:19 30 MG Sodium Chloride 100 ml ONCE ONCE IV 04/26/17 15:00 04/26/17 15:01 DC 04/26/17 16:00 100 ML Vital Signs/I&O Vital Sign - Last 12Hours 04/26/17 14:40 Temp 98.4 Pulse 127 Resp 18 B/P (MAP) 127/100 (109) Pulse Ox 99 O2 Delivery Room Air Blood Pressure Mean: 109 Progress Note : Progress Note 1700- patient went to the restroom and had a another large bloody stool. He then stood up to walk back to his room and collapsed. He had a syncopal episode and remained unresponsive for about 30 seconds before regaining consciousness. Blood pressure is currently 107/67, heart rate 1:15. Still pale but alert and talking to us. I'm ordering a repeat CBC at this time given the degree of bleeding in ER combined with hypotension. Ill move him to ICU status. Carlotta and Stephon notified. Diagnostic Imaging Diagonstic Imaging: Xray Plain Films/CT/US/NM/MRI: chest Comments NAME: DOMENICO LIMON [facility] REC#: [id number] PT STATUS: REG ER : 1970 PHYSICIAN: UDAY BARRIENTOS APRN ADMIT DATE: 04/26/17/ER Draft Date of Exam:04/26/17 CT ABDOMEN/PELVIS W PROCEDURE: CT abdomen and pelvis with contrast. TECHNIQUE: Multiple contiguous axial images were obtained through the abdomen and pelvis after administration of intravenous contrast. INDICATION: Bloody stools beginning today. Lower abdominal pain. COMPARISON: 05/17/2015. FINDINGS: There is groundglass and tree-in-bud opacity in the lung bases bilaterally. The heart is normal in size. There is no pericardial effusion. No focal hepatic lesions are seen. The spleen appears normal. The pancreas is normal. The adrenal glands appear normal. A hypodense lesion in the left posterior kidney measures 2 cm and has the appearance of a simple cyst. There is no hydronephrosis. The gallbladder is decompressed. Motion artifact is present. The bowel loops are nondistended. Contrast is seen in the cecum, which appears to increase and become more diffuse through the ascending colon on the delayed image. There is no free fluid in the abdomen. No free air is seen. The urinary bladder is decompressed. There is a small fat-containing left inguinal hernia. No acute osseous abnormality is seen. IMPRESSION: 1. Contrast accumulating in the cecum, likely the site of the gastrointestinal bleed. 2. Groundglass and tree-in-bud opacities in the lung bases, may represent atypical infection. Dictated on workstation # [id number] Dict: 04/26/17 1609 Trans: 04/26/17 1617 [id number] Interpreted by: NIRMALA ALLEN MD Electronically signed by: Departure Communication (Admissions) Time/Spoke to Admitting Phy: 16:23 Communication I discussed the patient with Carlotta who is on-call for Fili. We will admit the patient, started GoLYTELY bowel prep now, plan for colonoscopy in the morning. Progress Notes 1535-patient had a bowel movement here. This was about 300-400 mL of grape jelly consistency clotted dark blood. In reviewing his old records he did have a colonoscopy done June 05, [address] Penn without abnormalities seen. This was done because of an anal fissure. He does have eczema and asthma. Because of the eosinophilic predominance on CBC are all over and parasite exam to the stool sample Impression Impression: Primary Impression: Gastrointestinal bleed Additional Impression: Bronchospasm Disposition: ADMITTED INPATIENT Condition: Critical Admissions Decision to Admit Reason: Admit from ER (General) Decision to Admit/Date: Apr 26, 2017 Time/Decision to Admit Time: 16:26 Departure-Patient Inst. Referrals: KULWINDER COLMENARES MD (PCP/Family) Primary Care Physician UDAY BARRIENTOS APRN Apr 26, 2017 14:56
[2017-04-26] MEDS ORDERED: NS IV 1000 ML 1,000 ML IV SCH (15:00)
[2017-04-26] MEDS ORDERED: IOHEXOL 350 MG/ML 100 ML (OMNIPAQUE 350) VIAL IV ONE (15:00)
[2017-04-26] MEDS ORDERED: NS 100 ML (IVPB) BAG IV ONE (15:00)
[2017-04-26] MEDS ORDERED: KETOROLAC 30 MG/ML VIAL IVP ONE (15:00)
[2017-04-26 15:28] LABS: BASOPHILS # (AUTO) 0.1 10^3/uL (0.0-0.1); BASOPHILS % (AUTO) 1 % (0-10); EOSINOPHILS # (AUTO) 3.3 10^3/uL (0.0-0.3); EOSINOPHILS % (AUTO) 27 % (0-10); HEMATOCRIT 41 % (40-54); HEMOGLOBIN 13.7 G/DL (13.3-17.7); LYMPHOCYTES # (AUTO) 1.7 X 10^3 (1.0-4.0); LYMPHOCYTES % (AUTO) 14 % (12-44); MEAN CORPUSCULAR HEMOGLOBIN 29 PG (25-34); MEAN CORPUSCULAR HGB CONC 34 G/DL (32-36); MEAN CORPUSCULAR VOLUME 84 FL (80-99); MEAN PLATELET VOLUME 10.2 FL (7.4-10.4); MONOCYTES # (AUTO) 1.2 X 10^3 (0.0-1.0); MONOCYTES % (AUTO) 9 % (0-12); NEUTROPHILS # (AUTO) 6.1 X 10^3 (1.8-7.8); NEUTROPHILS % (AUTO) 50 % (42-75); PLATELET COUNT 350 10^3/uL (130-400); RED BLOOD COUNT 4.81 10^6/uL (4.35-5.85); RED CELL DISTRIBUTION WIDTH 12.4 % (10.0-14.5); WHITE BLOOD COUNT 12.3 10^3/uL (4.3-11.0)
[2017-04-26 15:49] LABS: ALANINE AMINOTRANSFERASE 17 U/L (0-55); ALBUMIN 3.4 GM/DL (3.2-4.5); ALKALINE PHOSPHATASE 129 U/L (40-136); BILIRUBIN,TOTAL 0.4 MG/DL (0.1-1.0); BUN/CREATININE RATIO 10; CARBON DIOXIDE 21 MMOL/L (21-32); CHLORIDE 106 MMOL/L (98-107); CREATININE SERUM 0.96 MG/DL (0.60-1.30); GFR ESTIMATED > 60; GLUCOSE 105 MG/DL (70-105); POTASSIUM 3.6 MMOL/L (3.6-5.0); SODIUM 139 MMOL/L (135-145); TOTAL PROTEIN 7.8 GM/DL (6.4-8.2)
[2017-04-26] MEDS ORDERED: RT-LEVALBUTEROL (XOPENEX) 1.25 MG/3 ML NEB NON-FORMULARY ONE (16:04)
--- NOTE | 2017-04-26 16:17 | Diagnostic Imaging Report ---
PROCEDURE: CT abdomen and pelvis with contrast. TECHNIQUE: Multiple contiguous axial images were obtained through the abdomen and pelvis after administration of intravenous contrast. INDICATION: Bloody stools beginning today. Lower abdominal pain. COMPARISON: 05/17/2015. FINDINGS: There is groundglass and tree-in-bud opacity in the lung bases bilaterally. The heart is normal in size. There is no pericardial effusion. No focal hepatic lesions are seen. The spleen appears normal. The pancreas is normal. The adrenal glands appear normal. A hypodense lesion in the left posterior kidney measures 2 cm and has the appearance of a simple cyst. There is no hydronephrosis. The gallbladder is decompressed. Motion artifact is present. The bowel loops are nondistended. Contrast is seen in the cecum, which appears to increase and become more diffuse through the ascending colon on the delayed image. There is no free fluid in the abdomen. No free air is seen. The urinary bladder is decompressed. There is a small fat-containing left inguinal hernia. No acute osseous abnormality is seen. IMPRESSION: 1. Contrast accumulating in the cecum, likely the site of the gastrointestinal bleed. 2. Groundglass and tree-in-bud opacities in the lung bases, may represent atypical infection or sequela from old infection. Dictated by: Dictated on workstation # [id number]
--- OUTSIDE RECORDS SUMMARY | 2017-04-26 16:41 | XMS REPORT | Clinical Summary ---
Author Author [facility] Organization [facility] Address Unknown Phone Unavailable Care Team Providers Care Field Handyman Name Role Phone PCP Unavailable Source Comments Some departments are not documenting in the electronic medical record. If you do not see the information that you expected, contact Release of Information in the Health Information Management department at [phone] for further assistance in locating additional records.[facility] Allergies Active Allergy Reactions Severity Noted [...] spray BID (per protocol; Dr. Matthieu Peña [facility]; [id number]) prednisone (DELTASONE) 10 60mg daily x 5 [...] INFLUENZA VACCINE 11/18/2016 Implants Implanted Type Area Client Services Assistant Device Expiration Model / Identifier Date Serial / Lot Stent Nasal Propel Mometasone Left: INTERSECT ENT 12/10/2017 [id number] / Furoate 370 Mcg Sinus [id number] / Implanted: Qty: 1 on 06/02/2016 by [id number] Ralf Stoddard MD Stent Nasal Propel Mometasone Right: INTERSECT ENT 12/10/2017 [id number] / Furoate 370 Mcg Sinus [id number] / Implanted: Qty: 1 on 06/02/2016 by [id number] Ralf Stoddard MD Stent Nasal [employer] Collagen [id number] / Hyaluronic Acid Dressing NA / Implanted: Qty: 1 on 06/02/2016 by Ralf Lau MD Results Not on filefrom Last 3 Months
--- OUTSIDE RECORDS SUMMARY | 2017-04-26 16:41 | XMS REPORT | Continuity of Care Document ---
Author Author [employer] Organization [facility] Address Unknown Phone Unavailable Care Team Providers Care Glass Designer Name Role Phone [employer] Unavailable Unavailable Problems Medications Allergies, Adverse Reactions, Alerts Immunizations Results Vital Signs Encounters Location Location Details Encounter Type Encounter Number Reason For Visit Attending Provider ADM Date DC Date Status Source OUTPATIENT [id number] YULIA SANTAMARIA 04/23/2016 04/23/2016 Active [facility] Joanna CHAVIS Active [facility] Procedures Plan of Care Social History Assessment and Plan Family History Advance Directives Functional Status
--- OUTSIDE RECORDS SUMMARY | 2017-04-26 16:41 | XMS REPORT | Encounter Summary ---
Author Author [facility] Organization [facility] Address Unknown Phone Unavailable Care Team Providers Care Extractor Operator Solvent Process Name Role Phone PCP Unavailable Reason for Visit * Reason Comments Medication Refill Encounter Details Date Type Department Care Team Description 04/23/2017 Refill [facility] Vega MD Physicians - Internal [address] [facility] [place] [address] [place], [place] [id number] [facility] [facility] [facility] [phone] [place] [address] Social History Tobacco Use Types [...]
--- OUTSIDE RECORDS SUMMARY | 2017-04-26 16:43 | XMS REPORT | Continuity of Care Document ---
Author Author [facility] Organization [facility] Address Unknown Phone Unavailable Allergies Active Description Code Type Severity Reaction Onset Reported/Identified Relationship to Patient Clinical Status Yes [id number] (SULFA (SULFONAMIDE ANTIBIOTICS)) [id number] (SULFA (SULFONAMIDE ANTIBIOTICS)) Mild N/A 04/12/2009 Yes Sulfa (Sulfonamide Antibiotics) [id number] Drug Allergy Unknown N/A 2014 Medications There [...] MILD INTERMITTENT ASTHMA, UNCOMPLICATED 08/30/2015 SHAD NOYOLA [employer]FF [employer] Ot J30.9 ALLERGIC RHINITIS, UNSPECIFIED 08/30/2015 SHAD NOYOLA [employer]IC[employer] Ot J45.901 UNSPECIFIED ASTHMA WITH (ACUTE) EXACERBA [...] PAIN Procedures There is no data. Results Test Result Range Complete blood count (CBC) with automated white blood cell (WBC) differential - 04/26/17 15:17 Blood leukocytes automated count (number/volume) 12.3 10*3/uL 4.3-11.0 Blood erythrocytes automated count (number/volume) 4.81 10*6/uL 4.35-5.85 Venous blood hemoglobin measurement (mass/volume) 13.7 g/dL 13.3-17.7 Blood hematocrit (volume fraction) 41 % 40-54 Automated erythrocyte mean corpuscular volume 84 [foz_us] 80-99 Automated erythrocyte mean corpuscular hemoglobin (mass per erythrocyte) 29 pg 25-34 Automated erythrocyte mean corpuscular hemoglobin concentration measurement ( mass/volume) 34 g/dL 32-36 Automated erythrocyte distribution width ratio 12.4 % 10.0-14.5 Automated blood platelet count (count/volume) 350 10*3/uL 130-400 Automated blood platelet mean volume measurement 10.2 [foz_us] 7.4-10.4 Automated blood neutrophils/100 leukocytes 50 % 42-75 Automated blood lymphocytes/100 leukocytes 14 % 12-44 Blood monocytes/100 leukocytes 9 % 0-12 Automated blood eosinophils/100 leukocytes 27 % 0-10 Automated blood basophils/100 leukocytes 1 % 0-10 Blood neutrophils automated count (number/volume) 6.1 10*3 1.8-7.8 Blood lymphocytes automated count (number/volume) 1.7 10*3 1.0-4.0 Blood monocytes automated count (number/volume) 1.2 10*3 0.0-1.0 Automated eosinophil count 3.3 10*3/uL 0.0-0.3 Automated blood basophil count (count/volume) 0.1 10*3/uL 0.0-0.1 Comprehensive metabolic panel - 04/26/17 15:17 Serum or plasma sodium measurement (moles/volume) 139 mmol/L 135-145 Serum or plasma potassium measurement (moles/volume) 3.6 mmol/L 3.6-5.0 Serum or plasma chloride measurement (moles/volume) 106 mmol/L 98-107 Carbon dioxide 21 mmol/L 21-32 Serum or plasma anion gap determination (moles/volume) 12 mmol/L 5-14 Serum or plasma urea nitrogen measurement (mass/volume) 10 mg/dL 7-18 Serum or plasma creatinine measurement (mass/volume) 0.96 mg/dL 0.60-1.30 Serum or plasma urea nitrogen/creatinine mass ratio 10 NRG Serum or plasma creatinine measurement with calculation of estimated glomerular filtration rate > NRG Serum or plasma glucose measurement (mass/volume) 105 mg/dL 70-105 Serum or plasma calcium measurement (mass/volume) 9.0 mg/dL 8.5-10.1 Serum or plasma total bilirubin measurement (mass/volume) 0.4 mg/dL 0.1-1.0 Serum or plasma alkaline phosphatase measurement (enzymatic activity/volume) 129 U/L 40-136 Serum or plasma aspartate aminotransferase measurement (enzymatic activity/ volume) 20 U/L 5-34 Serum or plasma alanine aminotransferase measurement (enzymatic activity/volume ) 17 U/L 0-55 Serum or plasma protein measurement (mass/volume) 7.8 g/dL 6.4-8.2 Serum or plasma albumin measurement (mass/volume) 3.4 g/dL 3.2-4.5 Serum or plasma C reactive protein measurement (mass/volume) - 04/26/17 15:17 Serum or plasma C reactive protein measurement (mass/volume) 3.54 mg /dL 0.00-0.50 Erythrocyte sedimentation rate by westergren method - 04/26/17 15:17 Erythrocyte sedimentation rate by westergren method 57 mm 0-15 C DIFFICILE AG + TOXIN A/B. - 04/26/17 15:30 RESULTS NEGATIVE FOR ANTIGEN AND TOXIN A/B NRG RED CELLS LEUKO REDUCED AS1 - 04/26/17 15:47 RED CELLS LEUKO REDUCED AS1 READY NRG Blood type T Indirect antibody screen panel - 04/26/17 15:47 ABO+Rh group OP NRG Transfusion band number [id number] NRG Blood group antibody screen NEGATIVE NRG Encounters ACCT No. Visit Date/Time Discharge Status Pt. Type Provider Facility Loc./Unit Complaint [id number] 04/23/2017 08:15:00 04/23/2017 23:59:59 CLS Preadmit DARRIAN NEWTON, KULWINDER Sanders [facility] RAD VOMITING [id number] 04/22/2017 10:00:00 04/22/2017 23:59:59 CLS Preadmit DARRIAN NEWTON, KULWINDER Sanders [facility] CARD ABDOMINAL PAIN [id number] 04/10/2017 08:17:00 04/10/2017 23:59:59 CLS Outpatient SOPHIA LOCO APRN [facility] RAD ABD PAIN [id number] 05/13/2016 13:00:00 05/13/2016 23:59:59 CLS Preadmit CORNEL CORTES DO [facility] ASTHMA,DYSPNEA [id number] 03/27/2016 12:48:00 05/12/2016 00:01:00 DIS Outpatient CORNEL CORTES DO [facility] ASTHMA,DYSPNEA [id number] 01/30/2016 10:38:00 02/11/2016 00:01:00 DIS Outpatient CORNEL CORTES DO [facility] ASTHMA,DYSPNEA [id number] 01/02/2016 08:03:00 01/02/2016 23:59:59 CLS Outpatient MICHAEL AVILA [facility] LAB HTN, ASTHMA, SNORING [id number] 10/30/2015 16:50:00 11/06/2015 00:01:00 DIS Outpatient CORNEL CORTES DO [facility] ASTHMA,DYSPNEA [id number] 07/24/2015 12:50:00 07/29/2015 00:01:00 DIS Outpatient CORNEL CORTES DO [facility] ASTHMA,DYSPNEA [id number] 07/24/2015 13:24:00 07/24/2015 23:59:59 CLS Outpatient SHAD NOYOLA APRN [facility] LAB ALLERGIC RHINITIS, ASTHMA, BRONCHITIS [id number] 06/16/2015 11:26:00 06/16/2015 15:09:00 DIS Emergency CHERRIE JOHNSTON [facility] ER FEVER/VOMITING [id number] 06/05/2015 07:00:00 06/05/2015 09:03:00 DIS Outpatient JEANCARLOS SARGENT DO [facility] SCREENING,BLOOD IN STOOLS [id number] 05/31/2015 05:36:00 05/31/2015 23:59:59 CLS Outpatient JEANCARLOS SARGENT DO [facility] PREOP BLOOD IN STOOLS [id number] 05/17/2015 08:39:00 05/17/2015 23:59:59 CLS Outpatient KULWINDER COLMENARES MD [facility] RAD ABD PAIN [id number] 04/17/2015 11:35:00 04/23/2015 00:01:00 DIS Outpatient CORNEL CORTES DO [facility] ASTHMA,DYSPNEA [id number] 03/29/2015 19:55:00 03/30/2015 06:30:00 DIS Outpatient CORNEL CORTES DO [facility] SLEEP SNORING, HYPERTENSION, EXCESSIVE SLEEPINESS [id number] 03/02/2015 14:50:00 03/02/2015 23:59:59 CLS Outpatient CORNEL CORTES DO [facility] RAD ASTHMA,ALLERGIC RHINITIS, DYSPNEA [id number] 01/08/2015 12:00:00 01/17/2015 00:01:00 DIS Outpatient CORNEL CORTES DO [facility] ASTHMA,DYSPNEA [id number] 12/20/2014 13:36:00 12/20/2014 23:59:59 CLS Outpatient RIKY NEWTON, MARY ALICE Toth [facility] CARD DYSPNEA,ABNORMAL EKG, HTN [id number] 12/07/2014 00:12:00 12/07/2014 23:59:59 CLS Preadmit CORNEL CORTES DO [facility] RAD ASTHMA,DYSPNEA,ALLERGIC RHINITIS [id number] 09/07/2014 14:46:00 12/06/2014 00:01:00 DIS Outpatient CORNEL CORTES DO [facility] RAD [id number] 11/15/2014 14:39:00 11/15/2014 14:54:00 DIS Outpatient CORNEL CORTES DO [facility] SLEEP OBSERVED APNEA, SNORING , EDS, AM HEADACHE [id number] 08/23/2014 15:45:00 08/23/2014 23:59:59 CLS Outpatient CORNEL CORTES DO [facility] RT [id number] 06/01/2014 08:42:00 06/01/2014 23:59:59 CLS Outpatient KULWINDER COLMENARES MD [facility] RAD [id number] 05/10/2014 14:55:00 05/14/2014 10:15:00 DIS Inpatient KULWINDER COLMENARES MD [facility] 4TH HYPOXIA,BRONCHOSPASM, PANSINUSITISS [id number] 04/27/2014 09:57:00 04/27/2014 23:59:59 CLS Outpatient CORNEL CORTES DO [facility] RAD [id number] 03/08/2014 10:43:00 03/08/2014 23:59:59 CLS Outpatient KULWINDER COLMENARES MD [facility] RAD [id number] 02/06/2014 12:28:00 02/06/2014 23:59:59 CLS Outpatient [id number] 12/22/2013 01:18:00 12/22/2013 02:43:00 DIS Emergency [id number] 04/26/2017 15:31:00 Document Registration [id number] 06/16/2014 07:22:00 Document Registration [id number] 06/07/2014 15:43:00 Document Registration
[2017-04-26 17:18] LABS: HEMOGLOBIN 10.7 G/DL (13.3-17.7); MEAN PLATELET VOLUME 10.4 FL (7.4-10.4); RED BLOOD COUNT 3.73 10^6/uL (4.35-5.85); RED CELL DISTRIBUTION WIDTH 12.4 % (10.0-14.5); WHITE BLOOD COUNT 16.2 10^3/uL (4.3-11.0)
[2017-04-26] MEDS ORDERED: NS IV 1000 ML 1,000 ML ONE (17:24)
[2017-04-26] MEDS ORDERED: GOLYTELY POWDER 4000 ML BTL PO ONE ×2 (18:26→18:30)
[2017-04-26] MEDS ORDERED: RT-ALBUINH IH (18:27)
[2017-04-26] MEDS ORDERED: FLT22013 IH (18:27)
[2017-04-26] MEDS: NS IV 1000 ML 1,000 ML IV SCH (18:38)
[2017-04-26] MEDS: ONDANSETRON 4 MG/2 ML (SDV) Z0FRAN IVP PRN ×2 (18:49→22:53)
[2017-04-26] MEDS: morphine INJ 4 MG/ML 1 ML (VIAL/SYRINGE) IVP PRN ×3 (18:50→23:55)
[2017-04-26] MEDS ORDERED: CATHETER FLUSH 10 ML SYR IV PRN (20:15)
--- NOTE | 2017-04-26 20:32 | History & Physical-Surgical ---
History of Present Illness History of Present Illness Reason for visit/HPI Pt was admitted to the hospital with Lower GI bleed. HPI: Pt presented to ER with reports of 2 episodes of large volume bright red bloody diarrhea suprapubic pain that began today at about noon. He states he has been having diarrhea for about 3 months and today when he felt like he was going to have diarrhea he went to the bathroom. However, today it was bloody. 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 Penn; but states this was a very different type of bleeding. With the fissure it was "eddie surrounding the poop, this makes up most of the bowel movement". He had an abnormal Hepatobiliary scan on 04/22/17 found to have ejection fraction of 25%. He had this done because of some ongoing abdominal discomfort and diarrhea (nonbloody until today). He does have asthma and did have to use his rescue inhaler once today. Family member is present and is a nurse in the cancer center. She states that he is unintentionally lost about 40 pounds over the past few months because of no appetite. Timing/Duration: Getting Worse, Intermittent Severity/Quality: Cramping Location: Suprapubic Pt subsequently had a couple more episodes in the ER and then passed out in the bathroom in the ER. He states the pain in his abdomen is across the entire lower belly and suprapubically. He has never had pain before with the diarrhea. Date of Admission Apr 26, 2017 at 16:00 Time Seen by Provider: 19:34 I consulted on this patient on 04/26/17 20:27 Attending Physician Cristóbal Brasher DO Admitting Physician Charlie Hu MD Consult Allergies and Home Medications Allergies Coded Allergies: Sulfa (Sulfonamide Antibiotics) (Unverified Allergy, Unknown, 05/10/14) Home Medications Albuterol Sulfate 1 Puff Puff, 2 PUFF IH Q4H PRN for SHORTNESS OF BREATH, ( Reported) Cetirizine HCl 10 Mg Capsule, 10 MG PO DAILY PRN for ALLERGIES, (Reported) Fluticasone Propionate 1 Ea Aero, 2 PUFF IH BID, (Reported) Fluticasone/Salmeterol 1 Each Blst.w.dev, 2 PUFF IH BID, (Reported) Past Rdeqshu-Lfebkp-Byzuik Hx Patient Social History Alcohol Use: Occasionally Uses Number of Drinks Today: BB Recreational Drug Use: No Smoking Status: Former Smoker Former Smoker, Quit: Apr 26, 1996 Type Used: Cigarettes 2nd Hand Smoke Exposure: No Recent Foreign Travel: No Contact w/Someone Who Travel: No Recent Infectious Disease Expo: No Recent Hopitalizations: No Physical Abuse Screen: No Sexual Abuse: No Immunizations Up To Date Tetanus Booster (TDap): Unknown PED Vaccines UTD: No Date of Influenza Vaccine: Apr 04, 2016 Seasonal Allergies Seasonal Allergies: No Surgeries History of Surgeries: Yes (sinus sx) Surgeries: Appendectomy, Nose Respiratory History of Respiratory Disorde: Yes Respiratory Disorders: Asthma Cardiovascular History of Cardiac Disorders: Yes Cardiac Disorders: Hypertension Neurological History of Neurological Disord: No Reproductive System Hx Reproductive Disorders: No Sexually Transmitted Disease: No HIV/AIDS: No Genitourinary History of Genitourinary Disor: No Gastrointestinal History of Gastrointestinal Di: No Musculoskeletal History of Musculoskeletal Dis: No Endocrine History of Endocrine Disorders: No HEENT History of HEENT Disorders: No Cancer History of Cancer: No Psychosocial History of Psychiatric Problem: No Integumentary History of Skin or Integumenta: No Blood Transfusions History of Blood Disorders: No Adverse Reaction to a Blood Tr: No Family Medical History Significant Family History: Other Conditions/Hx (He states family mmeber with colitis and a cousin with colon cancer) Family Medial History: Hypertension 19 FATHER Neoplasm G8 SISTER Prostate cancer 19 FATHER Constitutional: No chills, No diaphoresis, dizziness, malaise, weakness, weight loss EENTM: No hearing loss, No blurred vision, No mouth pain, No mouth swelling, No epistaxis, No throat swelling Respiratory: cough, No hemoptysis, No orthopnea, No phlegm, wheezing Cardiovascular: No chest pain, No edema, No palpitations Gastrointestinal: constipation, loss of appetite, nausea Genitourinary: decreased output, No dysuria, No hematuria, No incontinence Musculoskeletal: No back pain, No joint pain, No joint swelling, No muscle stiffness Skin: No change in color, No change in hair/nails, No lesions Psychiatric/Neurological: Denies Anxiety, Denies Depressed, Denies Headache, Denies Seizure, Denies Tremors Other pt denies any abnormal bleeding or bruising, no heat or cold intolerance Physical Exam Vital Signs Vital Sign - Last 12Hours 04/26/17 14:40 Temp 98.4 Pulse 127 Resp 18 B/P (MAP) 127/100 (109) Pulse Ox 99 O2 Delivery Room Air Capillary Refill : Less Than 3 Seconds General Appearance: WD/WN, Mild Distress Eyes: Bilateral Eye PERRL, Bilateral Eye EOMI HEENT: Pharynx Normal, Moist Mucous Membranes, No Pale Conjunctivae (L), No Pale Conjunctivae (R), No Scleral Icterus (L), No Scleral Icterus (R) Neck: Full Range of Motion, Non Tender, Supple, No Thyromegaly Respiratory: Chest Non Tender, Lungs Clear, Normal Breath Sounds, No Accessory Muscle Use, No Respiratory Distress Cardiovascular: No Edema, No Murmur, No JVD, Tachycardia Gastrointestinal: Normal Bowel Sounds, No Organomegaly, No Pulsatile Mass, Soft , No Distended, Hernia (small umbilical hernia), Tenderness (LLQ, RLQ and suprapubic. 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 Norm as Tested Skin: Normal Color, Warm/Dry Lymphatic: No Adenopathy (neck axilla or groin) Data Review Labs Laboratory Tests 04/26/17 15:17: White Blood Count 12.3H, Red Blood Count 4.81, Hemoglobin 13.7, Hematocrit 41, Mean Corpuscular Volume 84, Mean Corpuscular Hemoglobin 29, Mean Corpuscular Hemoglobin Concent 34, Red Cell Distribution Width 12.4, Platelet Count 350, Mean Platelet Volume 10.2, Neutrophils (%) (Auto) 50, Lymphocytes (%) (Auto) 14 , Monocytes (%) (Auto) 9, Eosinophils (%) (Auto) 27H, Basophils (%) (Auto) 1, Neutrophils # (Auto) 6.1, Lymphocytes # (Auto) 1.7, Monocytes # (Auto) 1.2H, Eosinophils # (Auto) 3.3H, Basophils # (Auto) 0.1, Erythrocyte Sedimentation Rate 57H, Sodium Level 139, Potassium Level 3.6, Chloride Level 106, Carbon Dioxide Level 21, Anion Gap 12, Blood Urea Nitrogen 10, Creatinine 0.96, Estimat Glomerular Filtration Rate > 60, BUN/Creatinine Ratio 10, Glucose Level 105, Calcium Level 9.0, Total Bilirubin 0.4, Aspartate Amino Transf (AST/SGOT) 20, Alanine Aminotransferase (ALT/SGPT) 17, Alkaline Phosphatase 129, C- Reactive Protein High Sensitivity 3.54H, Total Protein 7.8, Albumin 3.4 04/26/17 17:10: White Blood Count 16.2H, Red Blood Count 3.73L, Hemoglobin 10.7#L, Hematocrit 33L, Mean Corpuscular Volume 87, Mean Corpuscular Hemoglobin 29, Mean Corpuscular Hemoglobin Concent 33, Red Cell Distribution Width 12.4, Platelet Count 345, Mean Platelet Volume 10.4 Microbiology 04/26/17 C. difficile GDH Antigen & Toxins - Final, Resulted 04/26/17 Stool Culture, Resulted Pending Assessment/Plan Assessment/Plan Assessment/Plan 1. Lower GI bleed - Cecum 2. Anemia secondary to #1 3. Asthma Pt's hemoglobin dropped from 13.[address] shows active bleeding. Unfortunately there is nothing we can do right now, must do colon prep to clean out large intestine. That way I can see the bleeding when I do the colonoscopy and hopefully control bleeding with cautery, clip or injection. Right now there is too much material in the colon (feces, blood, fluid) would not be able to see the bleeding or probably get to the right side at this time. I am unsure what the cause of the bleeding is; most likely it is colits causing ulceration into artery or diverticular bleed. Pt just had a colonoscopy in June of this year which did not show anything besides some hemorrhoids and an anal fissure. The very last option would be surgical resection; at least we can be sure the bleeding is in the cecum and could therefore direct resection to that area. Pt is currently drinking colon prep. Will not repeat H/H until 4:30 am, I am expecting it to be lower.....but trying to avoid a transfusion unless it is absolutely necessary; Hg less than 7 or having chest pain. Pt and his family all understand this and all questions answered to their satisfaction. CT scan does not show any free air or bleeding outside of the colon. Clinical Quality Measures DVT/VTE Risk/Contraindication: Risk Factor Score Per Nursin RFS Level Per Nursing on Admit: 1=Low/No VTE PPX CRISTÓBAL BRASHER DO Apr 26, 2017 20:32
[2017-04-26] MEDS: CATHETER FLUSH 10 ML SYR IV SCH (22:00)
[2017-04-26] MEDS ORDERED: RT-ALBUTEROL SULF 2.5 MG/3 ML PRE-MIX VIAL INH PRN (23:45)
[2017-04-26] MEDS: RT-LEVALBUTEROL (XOPENEX) 1.25 MG/3 ML NEB NON-FORMULARY INH SCH (23:47)
[2017-04-27] VITALS (18 sets, daily range): BP systolic 116–153; BP diastolic 79–103
[2017-04-27] MEDS: NS IV 1000 ML 1,000 ML IV SCH ×2 (01:32→09:32)
[2017-04-27] MEDS ORDERED: LIDOCAINE UROJET 2% GEL 10 ML PKG ONE (01:38)
[2017-04-27] MEDS: ONDANSETRON 4 MG/2 ML (SDV) Z0FRAN IVP PRN ×2 (02:40→10:38)
[2017-04-27 05:24] LABS: BASOPHILS % (AUTO) 0 % (0-10); EOSINOPHILS # (AUTO) 2.4 10^3/uL (0.0-0.3); EOSINOPHILS % (AUTO) 24 % (0-10); LYMPHOCYTES # (AUTO) 1.8 X 10^3 (1.0-4.0); LYMPHOCYTES % (AUTO) 18 % (12-44); MEAN CORPUSCULAR HEMOGLOBIN 29 PG (25-34); MEAN PLATELET VOLUME 8.9 FL (7.4-10.4); MONOCYTES # (AUTO) 0.8 X 10^3 (0.0-1.0); MONOCYTES % (AUTO) 8 % (0-12); NEUTROPHILS # (AUTO) 4.8 X 10^3 (1.8-7.8); NEUTROPHILS % (AUTO) 49 % (42-75); PLATELET COUNT 282 10^3/uL (130-400); RED BLOOD COUNT 3.14 10^6/uL (4.35-5.85); RED CELL DISTRIBUTION WIDTH 12.5 % (10.0-14.5); WHITE BLOOD COUNT 9.7 10^3/uL (4.3-11.0)
[2017-04-27 05:55] LABS: ALANINE AMINOTRANSFERASE 13 U/L (0-55); ALBUMIN 2.7 GM/DL (3.2-4.5); ALKALINE PHOSPHATASE 96 U/L (40-136); BILIRUBIN,TOTAL 0.4 MG/DL (0.1-1.0); BUN/CREATININE RATIO 11; CALCIUM 7.7 MG/DL (8.5-10.1); CARBON DIOXIDE 19 MMOL/L (21-32); CHLORIDE 109 MMOL/L (98-107); CREATININE SERUM 0.71 MG/DL (0.60-1.30); GFR ESTIMATED > 60; GLUCOSE 96 MG/DL (70-105); POTASSIUM 3.7 MMOL/L (3.6-5.0); SODIUM 140 MMOL/L (135-145); TOTAL PROTEIN 5.9 GM/DL (6.4-8.2)
[2017-04-27] MEDS ORDERED: MAGNESIUM 1 GM/100 ML IVPB 100 ML IV SCH (06:00)
[2017-04-27] MEDS ORDERED: KCL 20 MEQ TAB (K-DUR) PO SCH (06:00)
[2017-04-27] MEDS ORDERED: POTASSIUM CL 10MEQ/50ML IVPB 50 ML IV SCH (06:00)
[2017-04-27 06:08] LABS: BILIRUBIN,URINE NEGATIVE (NEGATIVE); CLARITY,URINE SLIGHTLY CLOUDY; GLUCOSE, URINE (UA) NEGATIVE (NEGATIVE); KETONES,URINE 3+ (NEGATIVE); LEUKOCYTE ESTERASE ,URINE 1+ (NEGATIVE); NITRITE,URINE NEGATIVE (NEGATIVE); PH,URINE 5 (5-9); PROTEIN,URINE 2+ (NEGATIVE); UROBILINOGEN,URINE NORMAL (NORMAL)
[2017-04-27 06:09] LABS: BAND NEUTROPHILS 0 %; BASOPHILS % (MANUAL) 0 %; EOSINOPHILS % (MANUAL) 18 %; LYMPHOCYTES % (MANUAL) 19 %; MONOCYTES % (MANUAL) 17 %; NEUTROPHILS % (MANUAL) 46 %; RBC MORPH NORMAL
[2017-04-27 06:15] LABS: COLOR,URINE YELLOW
[2017-04-27 06:16] LABS: BACTERIA,URINE FEW /HPF; RBC,URINE RARE /HPF; SQUAMOUS EPITHELIAL CELL,UR RARE /HPF
[2017-04-27] MEDS: CATHETER FLUSH 10 ML SYR IV SCH ×2 (06:22→22:00)
[2017-04-27 06:40] LABS: MAGNESIUM 1.6 MG/DL (1.8-2.4); PHOSPHORUS 3.2 MG/DL (2.3-4.7)
[2017-04-27] MEDS ORDERED: BISACODYL 5 MG (DULCOLAX) TABLET PO NR (07:30)
[2017-04-27] MEDS ORDERED: MAGNESIUM CITRATE 300 ML BTL PO NR (07:30)
[2017-04-27] MEDS ORDERED: RT-ALBUTEROL SULF 2.5 MG/3 ML PRE-MIX VIAL INH SCH (08:00)
[2017-04-27] MEDS: RT-LEVALBUTEROL (XOPENEX) 1.25 MG/3 ML NEB NON-FORMULARY INH SCH ×3 (08:05→18:19)
[2017-04-27] MEDS: RT-ADVAIR HFA 115/21 MCG PER PUFF IH SCH ×2 (08:10→18:19)
--- NOTE | 2017-04-27 08:10 | Consultation-Hospitalist ---
HPI History of Present Illness: HPI/Chief Complaint Pt is a 46yoCm with a PMH of chronic diarrhea and HTN who presented to the ER with CC of BRGARY. He has had issues with chronic diarrhea for the past few months and has followed with Dr Penn. He recently has a HIDA scan and was to have his gallbladder removed. He had a large bright red stool yesterday around 1 -2 pm that continued so he presented to the Er for evaluation. He had another large volume bloody stool in the ER and subsequently passed out on return to bed. He was admitted for evaluation of GI bleed and colonoscopy today. He incidentally was found to have ground glass opacities in his lung bases on CT abd. He denies any respiratory symptoms, fevers, chills. Source: patient Date Seen 04/27/17 Attending Physician Cristóbal Laguerre Floyd R MD Referring Physician Date of Admission Apr 26, 2017 at 4:00 pm Home Medications & Allergies Home Medications Reviewed patient Home Medication Reconciliation Form Allergies Allergies Coded Allergies Sulfa (Sulfonamide Antibiotics) (Unverified Allergy, Unknown, 05/10/14) Past Tyyqkks-Dyoagc-Cxtsic Hx Patient Social History Alcohol Use: Occasionally Uses Number of Drinks Today: BB Alcohol Beverage of Choice: [place] Recreational Drug Use: No Smoking Status: Former Smoker Former Smoker, Quit: Apr 26, 1996 Type Used: Cigarettes 2nd Hand Smoke Exposure: No Physical Abuse Screen: No Sexual Abuse: No Recent Foreign Travel: No Contact w/other who traveled: No Recent Hopitalizations: No Recent Infectious Disease Expo: No Immunizations Up To Date Tetanus Booster (TDap): Unknown Pediatric: No Date of Influenza Vaccine: Apr 04, 2016 Seasonal Allergies Seasonal Allergies: No Surgeries Yes (sinus sx) Appendectomy, Nose Respiratory Yes Currently Using CPAP: No Currently Using BIPAP: No Cardiovascular Yes Hypertension Neurological No Reproductive System Hx Reproductive Disorders: No Sexually Transmitted Disease: No HIV/AIDS: No Genitourinary No Gastrointestinal No Musculoskeletal No Endocrine History of Endocrine Disorders: No HEENT History of HEENT Disorders: No Cancer No Psychosocial History of Psychiatric Problem: No Integumentary History of Skin or Integumenta: No Blood Transfusions History of Blood Disorders: No Adverse Reaction to a Blood Tr: No Family Medical History Significant Family History: Other Conditions/Hx (He states family mmeber with colitis and a cousin with colon cancer) Family Hx: Hypertension 19 FATHER Neoplasm G8 SISTER Prostate cancer 19 FATHER Review of Systems Constitutional: No chills, No fever EENTM: No blurred vision, No double vision, No nose congestion, No throat pain Respiratory: No cough, No dyspnea on exertion, No short of breath Cardiovascular: No chest pain, No edema, No palpitations, syncope Gastrointestinal: see HPI, abdominal pain, No constipation, diarrhea, No nausea , No vomiting Genitourinary: No dysuria, No frequency Musculoskeletal: No joint pain, No muscle pain Skin: No lesions, No rash Psychiatric/Neurological: Denies Headache, Denies Numbness, Denies Tingling Physical Exam Physical Exam Vital Signs Vital Sign - Last 12Hours 04/26/17 14:40 Temp 98.4 Pulse 127 Resp 18 B/P (MAP) 127/100 (109) Pulse Ox 99 O2 Delivery Room Air Capillary Refill : Less Than 3 Seconds General Appearance: No Apparent Distress, WD/WN HEENT: PERRL/EOMI, Moist Mucous Membranes Neck: Non Tender, Supple Respiratory: Lungs Clear, No Respiratory Distress Cardiovascular: Regular Rate, Rhythm, No Murmur Gastrointestinal: Normal Bowel Sounds, Soft, Tenderness (mild low abdomen tenderness) Extremity: Normal Capillary Refill, No Calf Tenderness, No Pedal Edema Neurologic/Psychiatric: Alert, Oriented x3, Normal Mood/Affect Skin: Normal Color, Warm/Dry Results Results/Procedures Lab Laboratory Tests 04/26/17 17:10 04/27/17 04:40 04/28/17 05:33 Assessment/Plan Admission Diagnosis GI Bleed Diagnosis/Problems Diagnosis/Problems (1) Gastrointestinal bleed Status: Acute Assessment & Plan: Bowel prep last night Management per Dr. Laguerre Colonoscopy today T&S, 2u on hold Qualifiers: Qualified Codes: K92.2 - Gastrointestinal hemorrhage, unspecified (2) Essential (primary) hypertension Status: Resolved Assessment & Plan: On no medications at baseline Will trend (3) Normocytic anemia Assessment & Plan: Down to 9.0 today Will trend Likely will need iron transfusion (4) Hypomagnesemia Assessment & Plan: On protocol Clinical Quality Measures DVT/VTE Risk/Contraindication: Risk Factor Score Per Nursin RFS Level Per Nursing on Admit: 1=Low/No VTE PPX ALDO YEN MD Apr 27, 2017 08:10
[2017-04-27] MEDS ORDERED: INFLUENZA TRIvalent 2017-2018 0.5 ML/45 MCG SYR IM ONE (08:15)
[2017-04-27] MEDS ORDERED: PANTOPRAZOLE 40 MG/10 ML (PROTONIX) VIAL IV SCH (09:00)
--- NOTE | 2017-04-27 09:19 | Progress Note ---
Subjective Time Seen by Provider: 09:01 Subjective/Events-last exam Pt seen and examined, events of last night noted. Pt states his abdominal pain is better, he got a rogers placed last night. Per nurse he is still having bloody BM's, she doesn't think there has been any formed fecal material. He vomited once last night and was not able to finish his golytely. Review of Systems General: No Chills, No Night Sweats, Fatigue, Malaise HEENT: No Head Aches Pulmonary: No Dyspnea, No Cough Cardiovascular: No: Chest Pain, Palpitations Gastrointestinal: Nausea, Vomiting, Abdominal Pain Genitourinary: No Hematuria, Retention Objective Exam Vital Signs Date Time Temp Pulse Resp B/P (MAP) Pulse Ox O2 Delivery O2 Flow Rate FiO2 04/27/17 08:05 Room Air 04/27/17 06:00 87 15 133/83 (100) 92 Room Air 04/27/17 05:00 92 18 140/95 (110) 92 Room Air 04/27/17 04:00 92 Room Air 04/27/17 04:00 98.4 86 20 116/79 (91) 94 Room Air 04/27/17 03:00 87 18 116/84 (95) 92 Room Air 04/27/17 02:00 96 17 137/103 (114) 92 Room Air 04/27/17 01:00 96 23 122/93 (103) 93 Room Air 04/27/17 01:00 95 04/27/17 00:00 107 26 118/95 (103) 92 Room Air 04/27/17 00:00 92 Room Air 04/26/17 23:50 98.5 04/26/17 23:27 98 94 04/26/17 23:00 104 18 124/94 (104) 92 Room Air 04/26/17 22:00 89 28 127/99 (108) 96 Room Air 04/26/17 21:00 93 22 131/87 (102) 96 Room Air 04/26/17 20:00 92 Room Air 04/26/17 20:00 101 23 131/91 (104) 97 Room Air 04/26/17 19:00 99.1 100 24 115/88 (97) 96 Room Air 04/26/17 19:00 100 04/26/17 17:43 95 Room Air 1/7/18 17:15 97.8 108 18 118/99 (105) 94 Room Air 04/26/17 17:15 97.6 123 18 95 Room Air 04/26/17 16:15 96 Room Air 04/26/17 14:40 98.4 127 18 127/100 (109) 99 Room Air I & O 04/27/17 07:00 Intake Total 2675 ml Output Total 800 ml Balance 1875 ml Capillary Refill : Less Than 3 Seconds General Appearance: WD/WN, Mild Distress HEENT: Pharynx Normal, Moist Mucous Membranes, No Pale Conjunctivae (L), No Pale Conjunctivae (R), No Scleral Icterus (L), No Scleral Icterus (R) Neck: Full Range of Motion, Non Tender, Supple, No Thyromegaly Respiratory: Chest Non Tender, Lungs Clear, Normal Breath Sounds, No Accessory Muscle Use, No Respiratory Distress Cardiovascular: No Edema, No Murmur, No JVD, Tachycardia Gastrointestinal: normal bowel sounds, soft, tenderness (very minimal with palpation across LQ and suprapubic) Extremity: Normal Capillary Refill, Normal Inspection, Non Tender, No Calf Tenderness, No Pedal Edema Neurologic/Psychiatric: Alert, Oriented x3, No Motor/Sensory Deficits, Normal Mood/Affect, 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 Norm as Tested Skin: Normal Color, Warm/Dry Lymphatic: No Adenopathy (neck axilla or groin) Results Lab Laboratory Tests 04/26/17 15:17: White Blood Count 12.3H, Red Blood Count 4.81, Hemoglobin 13.7, Hematocrit 41, Mean Corpuscular Volume 84, Mean Corpuscular Hemoglobin 29, Mean Corpuscular Hemoglobin Concent 34, Red Cell Distribution Width 12.4, Platelet Count 350, Mean Platelet Volume 10.2, Neutrophils (%) (Auto) 50, Lymphocytes (%) (Auto) 14 , Monocytes (%) (Auto) 9, Eosinophils (%) (Auto) 27H, Basophils (%) (Auto) 1, Neutrophils # (Auto) 6.1, Lymphocytes # (Auto) 1.7, Monocytes # (Auto) 1.2H, Eosinophils # (Auto) 3.3H, Basophils # (Auto) 0.1, Erythrocyte Sedimentation Rate 57H, Sodium Level 139, Potassium Level 3.6, Chloride Level 106, Carbon Dioxide Level 21, Anion Gap 12, Blood Urea Nitrogen 10, Creatinine 0.96, Estimat Glomerular Filtration Rate > 60, BUN/Creatinine Ratio 10, Glucose Level 105, Calcium Level 9.0, Total Bilirubin 0.4, Aspartate Amino Transf (AST/SGOT) 20, Alanine Aminotransferase (ALT/SGPT) 17, Alkaline Phosphatase 129, C- Reactive Protein High Sensitivity 3.54H, Total Protein 7.8, Albumin 3.4 04/26/17 17:10: White Blood Count 16.2H, Red Blood Count 3.73L, Hemoglobin 10.7#L, Hematocrit 33L, Mean Corpuscular Volume 87, Mean Corpuscular Hemoglobin 29, Mean Corpuscular Hemoglobin Concent 33, Red Cell Distribution Width 12.4, Platelet Count 345, Mean Platelet Volume 10.4 04/27/17 04:40: White Blood Count 9.7, Red Blood Count 3.14L, Hemoglobin 9.0L, Mean Corpuscular Hemoglobin 29, Red Cell Distribution Width 12.5, Platelet Count 282, Mean Platelet Volume 8.9, Neutrophils (%) (Auto) 49, Lymphocytes (%) (Auto) 18, Monocytes (%) (Auto) 8, Eosinophils (%) (Auto) 24H, Basophils (%) (Auto) 0, Neutrophils # (Auto) 4.8, Lymphocytes # (Auto) 1.8, Monocytes # (Auto) 0.8, Eosinophils # (Auto) 2.4H, Basophils # (Auto) 0.0, Sodium Level 140, Potassium Level 3.7, Chloride Level 109H, Carbon Dioxide Level 19L, Anion Gap 12, Blood Urea Nitrogen 8, Creatinine 0.71, Estimat Glomerular Filtration Rate > 60, BUN/ Creatinine Ratio 11, Glucose Level 96, Calcium Level 7.7L, Total Bilirubin 0.4, Aspartate Amino Transf (AST/SGOT) 16, Alanine Aminotransferase (ALT/SGPT) 13, Alkaline Phosphatase 96, Total Protein 5.9L, Albumin 2.7L, Neutrophils % (Manual ) 46, Lymphocytes % (Manual) 19, Monocytes % (Manual) 17, Eosinophils % (Manual ) 18, Basophils % (Manual) 0, Band Neutrophils 0, Blood Morphology Comment NORMAL, Phosphorus Level 3.2, Magnesium Level 1.6L 04/27/17 06:00: Urine Color YELLOW, Urine Clarity SLIGHTLY CLOUDY, Urine pH 5, Urine Specific [place] 1.025H, Urine Protein 2+H, Urine Glucose (UA) NEGATIVE, Urine Ketones 3+ H, Urine Nitrite NEGATIVE, Urine Bilirubin NEGATIVE, Urine Urobilinogen NORMAL, Urine Leukocyte Esterase 1+H, Urine RBC (Auto) 2+H, Urine RBC RARE, Urine WBC 2- 5, Urine Squamous Epithelial Cells RARE, Urine Crystals NONE, Urine Bacteria FEWH, Urine Casts NONE, Urine Mucus MODERATEH, Urine Culture Indicated YES Microbiology 04/26/17 C. difficile GDH Antigen & Toxins - Final, Resulted 04/26/17 Stool Culture, Resulted Pending Assessment/Plan Assessment/Plan Assessment/Plan 1. Lower GI bleed - Cecum 2. Anemia secondary to #1 3. Asthma 4. Urinary retention - had rogers placed, hopefully D/C that today Pt's hemoglobin dropped to 9 today. Unfortunately he was unable to complete the colon prep, added dose of Mg citrate and Dulcolax tabs to help clean out large intestine. Plan to do the colonoscopy around noon and hopefully control bleeding with cautery, clip or injection. Unknown cause of the bleeding is; most likely it is colits causing ulceration into artery or diverticular bleed. Pt just had a colonoscopy in June of this year which did not show anything besides some hemorrhoids and an anal fissure. The very last option would be surgical resection; at least we can be sure the bleeding is in the cecum and could therefore direct resection to that area. Will still avoid a transfusion unless it is absolutely necessary; Hg less than 7 or having chest pain. Pt and his family all understand this and all questions answered to their satisfaction. Clinical Quality Measures DVT/VTE Risk/Contraindication: Risk Factor Score Per Nursin RFS Level Per Nursing on Admit: 1=Low/No VTE PPX RANGEL BRASHER DO Apr 27, 2017 09:19
[2017-04-27 10:13] LABS: HEMATOCRIT 29 % (40-54); MEAN CORPUSCULAR HGB CONC 31 G/DL (32-36); MEAN CORPUSCULAR VOLUME 92 FL (80-99)
[2017-04-27] MEDS: RT-FLUTICASONE 220 MCG (FLOVENT) PER PUFF INH SCH ×2 (10:55→18:19)
[2017-04-27] MEDS: morphine INJ 4 MG/ML 1 ML (VIAL/SYRINGE) IVP PRN (11:15)
[2017-04-27] MEDS ORDERED: proPOfol 200 MG/20 ML (DIPRIVAN) VIAL IV ONE (13:04)
[2017-04-27] MEDS ORDERED: MIDAZOLAM 5 MG/5 ML (VERSED) VIAL ONE (13:04)
[2017-04-27] MEDS ORDERED: LACTATED RINGERS 1,000 ML IV ONE (13:11)
[2017-04-27] MEDS ORDERED: LACTATED RINGERS 1,000 ML IV STA (13:23)
[2017-04-27] MEDS ORDERED: IRON DEXTRAN INJECTION 25 MG in NS (IVPB) 50 ML IV ONE (14:15)
[2017-04-27] MEDS ORDERED: RT-ALBUTEROL SULF 2.5 MG/3 ML PRE-MIX VIAL INH PRN ×2 (14:15→14:30)
[2017-04-27] MEDS ORDERED: HYDROCORTISONE 100 MG/2 ML (Solu-CORTEF) VIAL IV PRN (14:15)
[2017-04-27] MEDS ORDERED: EPINEPHrine INJECTION 1 MG/ML AMP IM PRN (14:15)
[2017-04-27] MEDS ORDERED: diphenhydrAMINE 50 MG/ML INJ (BENADRYL) IV PRN (14:15)
[2017-04-27] MEDS ORDERED: IRON DEXTRAN INJECTION 975 MG in NS (IVPB) 250 ML IV ONE (14:30)
[2017-04-27] MEDS: NS IV 500 ML 500 ML IV SCH (16:22)
[2017-04-27] MEDS ORDERED: RT-FLUTICASONE 220 MCG (FLOVENT) PER PUFF IH SCH (21:00)
[2017-04-28 00:09] VITALS: BP 108/61
[2017-04-28 06:00] VITALS: BP 100/60
[2017-04-28 06:13] LABS: BASOPHILS % (AUTO) 0 % (0-10); EOSINOPHILS # (AUTO) 2.4 10^3/uL (0.0-0.3); EOSINOPHILS % (AUTO) 33 % (0-10); HEMATOCRIT 24 % (40-54); HEMOGLOBIN 8.4 G/DL (13.3-17.7); LYMPHOCYTES # (AUTO) 1.6 X 10^3 (1.0-4.0); LYMPHOCYTES % (AUTO) 22 % (12-44); MEAN CORPUSCULAR HEMOGLOBIN 30 PG (25-34); MEAN CORPUSCULAR HGB CONC 35 G/DL (32-36); MEAN CORPUSCULAR VOLUME 85 FL (80-99); MEAN PLATELET VOLUME 10.2 FL (7.4-10.4); MONOCYTES # (AUTO) 0.6 X 10^3 (0.0-1.0); MONOCYTES % (AUTO) 8 % (0-12); NEUTROPHILS # (AUTO) 2.6 X 10^3 (1.8-7.8); NEUTROPHILS % (AUTO) 37 % (42-75); PLATELET COUNT 258 10^3/uL (130-400); RED BLOOD COUNT 2.81 10^6/uL (4.35-5.85); RED CELL DISTRIBUTION WIDTH 12.3 % (10.0-14.5); WHITE BLOOD COUNT 7.2 10^3/uL (4.3-11.0)
[2017-04-28] MEDS: RT-ADVAIR HFA 115/21 MCG PER PUFF IH SCH (06:19)
[2017-04-28] MEDS: RT-LEVALBUTEROL (XOPENEX) 1.25 MG/3 ML NEB NON-FORMULARY INH SCH (06:19)
[2017-04-28] MEDS: RT-FLUTICASONE 220 MCG (FLOVENT) PER PUFF INH SCH (06:19)
[2017-04-28 06:38] LABS: BUN/CREATININE RATIO 4; CALCIUM 7.8 MG/DL (8.5-10.1); CARBON DIOXIDE 23 MMOL/L (21-32); CHLORIDE 108 MMOL/L (98-107); CREATININE SERUM 0.68 MG/DL (0.60-1.30); GFR ESTIMATED > 60; GLUCOSE 80 MG/DL (70-105); POTASSIUM 3.5 MMOL/L (3.6-5.0); SODIUM 140 MMOL/L (135-145)
[2017-04-28] MEDS: CATHETER FLUSH 10 ML SYR IV SCH ×2 (07:41→14:23)
[2017-04-28 08:52] VITALS: BP 125/72
[2017-04-28] MEDS: NS IV 500 ML 500 ML IV SCH (12:21)
--- NOTE | 2017-04-28 12:44 | Progress Note-Hospitalist ---
Subjective HPI/CC On Admission Date Seen by Provider: Apr 28, 2017 Time Seen by Provider: 11:00 Pt is a 46yoCm with a PMH of chronic diarrhea and HTN who presented to the ER with CC of BRBPR. He has had issues with chronic diarrhea for the past few months and has followed with Dr Penn. He recently has a HIDA scan and was to have his gallbladder removed. He had a large bright red stool yesterday around 1 -2 pm that continued so he presented to the Er for evaluation. He had another large volume bloody stool in the ER and subsequently passed out on return to bed. He was admitted for evaluation of GI bleed and colonoscopy today. He incidentally was found to have ground glass opacities in his lung bases on CT abd he denies any respiratory symptoms, fevers, chills. Subjective/Events-last exam Pt reports feeling better today. Had 2 BMs that were not dark or red per RN. Received IV iron yesterday. Objective Exam Vital Signs Vital Sign - Last 12Hours 04/26/17 14:40 Temp 98.4 Pulse 127 Resp 18 B/P (MAP) 127/100 (109) Pulse Ox 99 O2 Delivery Room Air Capillary Refill : Less Than 3 Seconds General Appearance: No Apparent Distress, WD/WN Respiratory: Lungs Clear, No Accessory Muscle Use, No Respiratory Distress Cardiovascular: Regular Rate, Rhythm, No Murmur Gastrointestinal: Normal Bowel Sounds, Non Tender, Soft Neurologic/Psychiatric: Alert, Oriented x3 Skin: Pallor Results/Procedures Lab Laboratory Tests 04/28/17 05:33 Assessment/Plan Assessment and Plan Assess & Plan/Chief Complaint GI Bleed Diagnosis/Problems Diagnosis/Problems (1) Gastrointestinal bleed Status: Acute Assessment & Plan: Management per Dr. Laguerre Colonoscopy yesterday, report unavailable currently received Infed yesterday Qualifiers: Qualified Codes: K92.2 - Gastrointestinal hemorrhage, unspecified (2) Essential (primary) hypertension Status: Resolved Assessment & Plan: On no medications at baseline WNL, continue to monitor (3) Normocytic anemia Assessment & Plan: Received Infed yesterday Hgb 8.4 this AM Repeat in AM (4) Hypokalemia Assessment & Plan: Will replace ALDO YEN MD Apr 28, 2017 12:43 pm
[2017-04-28] MEDS ORDERED: AZITHROMYCIN 250 MG TAB (ZITHROMAX) PO NR (12:45)
[2017-04-28] MEDS ORDERED: KCL 10 MEQ TAB (MICRO K) PO NR (12:45)
[2017-04-28 12:49] VITALS: BP 133/60
--- NOTE | 2017-04-28 13:25 | Progress Note ---
Subjective Time Seen by Provider: 12:47 Subjective/Events-last exam Pt seen, states he feels weak but no more bloody BM's. He is urinating without difficulty and does not have any abdominal pain. Review of Systems General: No Chills, No Night Sweats Pulmonary: No Dyspnea, Cough Cardiovascular: No: Chest Pain, Palpitations Gastrointestinal: No: Nausea, Vomiting Objective Exam Vital Signs Date Time Temp Pulse Resp B/P (MAP) Pulse Ox O2 Delivery O2 Flow Rate FiO2 04/28/17 12:49 98.7 88 20 133/60 (84) 94 Room Air 04/28/17 08:52 99.2 105 18 125/72 (89) 92 Room Air 04/28/17 08:00 Room Air 04/28/17 06:25 90 Room Air 04/28/17 06:24 90 04/28/17 06:19 90 Room Air 04/28/17 06:00 98.9 87 20 100/60 (73) 92 Room Air 04/28/17 00:09 98.0 86 16 108/61 (77) 92 Room Air 04/27/17 20:00 94 20 94 Room Air 04/27/17 19:00 98 14 136/93 (107) 93 Room Air 04/27/17 19:00 101 04/27/17 18:20 94 Room Air 04/27/17 18:00 92 13 123/86 (98) 94 Room Air 04/27/17 17:00 79 16 136/96 (109) 95 Room Air 04/27/17 16:00 80 21 132/89 (103) 95 Room Air 04/27/17 16:00 98.5 Room Air 04/27/17 15:00 80 18 93 Room Air 04/27/17 14:00 86 129/90 (103) 92 Room Air I & O 04/28/17 07:00 Intake Total 2492.0 ml Output Total 1050 ml Balance 1442.0 ml Capillary Refill : Less Than 3 Seconds General Appearance: No Apparent Distress, WD/WN HEENT: PERRL/EOMI, Moist Mucous Membranes Neck: Non Tender, Supple Respiratory: Lungs Clear, No Accessory Muscle Use, No Respiratory Distress Cardiovascular: Regular Rate, Rhythm, No Murmur Gastrointestinal: normal bowel sounds, soft, tenderness (very minimal with palpation across LQ and suprapubic) Extremity: Normal Capillary Refill, No Calf Tenderness, No Pedal Edema Neurologic/Psychiatric: Alert, Oriented x3 Skin: Pallor Lymphatic: No Adenopathy (neck axilla or groin) Results Lab Laboratory Tests 04/28/17 05:33: White Blood Count 7.2, Red Blood Count 2.81L, Hemoglobin 8.4L, Hematocrit 24L, Mean Corpuscular Volume 85, Mean Corpuscular Hemoglobin 30, Mean Corpuscular Hemoglobin Concent 35, Red Cell Distribution Width 12.3, Platelet Count 258, Mean Platelet Volume 10.2, Neutrophils (%) (Auto) 37L, Lymphocytes (%) (Auto) 22 , Monocytes (%) (Auto) 8, Eosinophils (%) (Auto) 33H, Basophils (%) (Auto) 0, Neutrophils # (Auto) 2.6, Lymphocytes # (Auto) 1.6, Monocytes # (Auto) 0.6, Eosinophils # (Auto) 2.4H, Basophils # (Auto) 0.0, Sodium Level 140, Potassium Level 3.5L, Chloride Level 108H, Carbon Dioxide Level 23, Anion Gap 9, Blood Urea Nitrogen 3L, Creatinine 0.68, Estimat Glomerular Filtration Rate > 60, BUN/ Creatinine Ratio 4, Glucose Level 80, Calcium Level 7.8L 04/28/17 10:15: Glucometer 104 Microbiology 04/26/17 C. difficile GDH Antigen & Toxins - Final, Resulted 04/26/17 Stool Culture - Preliminary, Resulted No stool pathogens as yet isolated. ... 04/27/17 Urine Culture - Preliminary, Resulted NO GROWTH Assessment/Plan Assessment/Plan Assessment/Plan 1. Lower GI bleed - Cecum 2. Anemia secondary to #1 3. Asthma 4. Urinary retention - resolved Pt's hemoglobin dropped to 9.4 today. This is minimal and most likely normal, do not think there is any active bleeding at this time. Will D/C pt home and have him f/u in offc to go over pathology; may do CBC at that time. He is to go to ER if he experiences rectal bleed again. Clinical Quality Measures DVT/VTE Risk/Contraindication: Risk Factor Score Per Nursin RFS Level Per Nursing on Admit: 1=Low/No VTE PPX RANGEL BRASHER DO Apr 28, 2017 13:25
--- NOTE | 2017-04-28 13:30 | Discharge Inst-Surgical ---
Discharge Inst-Surgical Depart Medication/Instructions New, Converted or Re-Newed RX: Other (No Rx needed.) Patient Instructions Follow up Appt: Make appointment for 04/30. Instructions: No lifting greater than 10 pounds. No strenuous activity. May shower in 24 hours, no tub bath or soaking. Use incentive spirometer at home as directed. No Smoking Symptoms to Report: Appetite Changes, Extremity Discoloration, Numbness/Tingling, Swelling Increased , Bleeding Excessive, Eyesight Changes, Pain Increased, Urine Color Change, Constipation(Persistent), Fever over 101 degree F, Pain/Pressure in chest, Urinating Difficulty, Cough Up/Vomit Blood, Heart Beat Irreg/Pounding, Pain/ Pressure in jaw, Cramps in feet or legs, Lightheadedness, Pain/Pressure in shoulder, Diarrhea(Persistent), Memory Changes Suddenly, Questions/Concerns, Weight gain consecutive days, Dizziness/Fainting, Nausea/Vomiting, Shortness of Breath, Weight gain over 2 pounds If questions or concerns contact your physician Or seek help at emergency department. Activity Activity as Tolerated: Yes Driving Instructions: No Driving/Refer to Dr. Arenas Discharge Diet: No Restrictions Diet After 24 Hours: Clear Liquid if Nauseous If Any Problems/Questions/Issu: Contact Your Physician, Go to Emergency Room Skin/Wound Care Infection Signs and Symptoms: Temperature Above 101 F RANGEL BRASHER DO Apr 28, 2017 13:30
[2017-04-28] MEDS ORDERED: AZIT250T PO (13:51)
--- NOTE | 2017-04-29 00:41 | OPERATIVE REPORT ---
DATE OF SERVICE: 04/27/2017 PREOPERATIVE DIAGNOSES: 1. Lower gastrointestinal bleed from the cecum. 2. Anemia. POSTOPERATIVE DIAGNOSES: 1. Lower gastrointestinal bleed from the cecum. 2. Anemia. 3. Ulcers in the cecum as well as in the sigmoid and descending colon. PROCEDURE PERFORMED: Colonoscopy with hot biopsy. SURGEON: Cristóbal Laguerre DO. COMMODITY INDUSTRY ANALYST: None. ANESTHESIA: IV sedation by the MEAT AND SEAFOOD MANAGER. BLOOD LOSS: Scant. SPECIMEN: Biopsies from cecum as well as from the sigmoid colon. FLUIDS: Per Anesthesia. INDICATION FOR PROCEDURE: The patient is a 46-year-old male, who had a GI bleed, bright red blood per rectum and actually had CAT scan, which showed blood coming out in the cecum with the contrast suggesting where the bleeding was coming from, never anything like this before and needed colonoscopy for workup. FINDINGS: The patient had a large ulcerated area with signs of previous bleeding in the cecum and then he had a couple of large ulcerations in the cecum. Pictures were taken. He also had some ulcerations in the sigmoid colon as well as some in the rectum. These were much smaller. PROCEDURE NOTE: After informed consent was obtained, the patient was brought to the endoscopy suite, placed in the bed in the left lateral decubitus position. He was administered IV sedation by the MEAT AND SEAFOOD MANAGER, who then monitored his vitals the entire time; heart rate, blood pressure and pulse ox. The scope was inserted. There was a little bit of blood and liquid fecal material on the way in and pushed it all the way to 150 cm, able to get to the cecum and able to suction out all the fluid and could see the appendiceal orifice, took a picture of this and noted an ulcer next to the appendiceal orifice and then noticed another ulcer on the opposite side of the terminal ileum. Large ulcerating area with whitish tissue, almost like ischemia and then an area with what looked like the old bleeding site, able to get into the terminal ileum which was opposite of this. Terminal ileum looked fine. There were no ulcerations, there was no erythema, it looked normal. Elected to multiple biopsies of this large ulcerated area and then slowly withdrew the scope insufflating left circumferentially tai looking at the cecum up the ascending colon to the hepatic flexure, then down the transverse colon, the splenic flexure, into the descending colon and into the sigmoid. In the sigmoid, again saw some small ulcerations, which may have been prep related and these were biopsied as well. Hot biopsies were performed and then saw some more ulcerations in the rectal vault. The scope was then removed. The patient tolerated the procedure and he was recovering in endoscopy. Job ID: [id number] DocumentID: [id number] Dictated Date: 04/28/2017 11:57:38 [employer] Line Back Feeder Date: 04/29/2017 00:41:07 Dictated By: CRISTÓBAL LAGUERRE DO
[2017-04-29] MEDS ORDERED: AZITHROMYCIN 250 MG TAB (ZITHROMAX) PO SCH (09:00)
== END 2017-04-28 14:50 | disposition home or self-care (01) | DRG 378 ==
LOC: EDUNIT# 14:29 → ER 14:30 → 4TH 16:00 → ICU 16:58 → 4TH 04-27 20:40
PROVIDERS: ADMIT Surgery; ATTEND Surgery
DX: K92.2 Gastrointestinal hemorrhage, unspecified (principal); K63.3 Ulcer of intestine; Z88.2 Allergy status to sulfonamides; J45.909 Unspecified asthma, uncomplicated; Z87.891 Personal history of nicotine dependence; I10 Essential (primary) hypertension; D64.9 Anemia, unspecified; E83.42 Hypomagnesemia; R33.9 Retention of urine, unspecified
CPT/HCPCS: 36415; 74177; 80048; 80053; 81000; 82962; 83735; 84100; 85007; 85025; 85027; 85652; 86141; 86850; 86900; 86901; 86920; 87045; 87046; 87088; 87177; 87324; 87449; 94640; 94760; 96374

== ENCOUNTER 2017-05-04 05:39 | Outpatient (CLI) | payer OTHER ==
[~2017-05-04] VITALS: Ht 185.4 cm; Wt 89.8 kg
[~2017-05-04 05:39] MED LIST changes: +AZIT250T PO; +FLT22013 IH; +RT-ALBUINH IH
== END 2017-05-04 11:36 ==
LOC: PREOP 05:39
PROVIDERS: ATTEND Surgery
DX: Z01.818 Encounter for other preprocedural examination (principal); K82.8 Other specified diseases of gallbladder

== ENCOUNTER 2017-05-07 09:15 | Day surgery (SDC) | payer OTHER ==
[2017-05-06 13:45] VITALS: BP 133/90
[~2017-05-07] VITALS: Ht 185.4 cm; Wt 89.8 kg
--- OUTSIDE RECORDS SUMMARY | 2017-05-07 09:18 | XMS REPORT | Clinical Summary ---
Author Author [facility] Organization [facility] Address Unknown Phone Unavailable Care Team Providers Care Leasing Professional Name Role Phone PCP Unavailable Source Comments Some departments are not documenting in the electronic medical record. If you do not see the information that you expected, contact Release of Information in the Health Information Management department at [phone] for further assistance in locating additional records.[facility] Allergies Active Allergy Reactions Severity Noted Date [...] protocol; Dr. Matthieu Peña [facility]; [id number]) prednisone (DELTASONE) 10 60mg daily x 5 [...] INFLUENZA VACCINE 11/18/2016 Implants Implanted Type Area De Icer Element Winder Device Expiration Model / Identifier Date Serial / Lot Stent Nasal Propel Mometasone Left: INTERSECT ENT 12/10/2017 [id number] / Furoate 370 Mcg Sinus [id number] / Implanted: Qty: 1 on 06/02/2016 by [id number] Ralf Stoddard MD Stent Nasal Propel Mometasone Right: INTERSECT ENT 12/10/2017 [id number] / Furoate 370 Mcg Sinus [id number] / Implanted: Qty: 1 on 06/02/2016 by [id number] Ralf Stoddard MD Stent Nasal [place] Collagen [id number] / Hyaluronic Acid Dressing NA / Implanted: Qty: 1 on 06/02/2016 by Ralf Lau MD Results Not on filefrom Last 3 Months
--- OUTSIDE RECORDS SUMMARY | 2017-05-07 09:18 | XMS REPORT | Continuity of Care Document ---
Author Author [employer] Organization [facility] Address Unknown Phone Unavailable Care Team Providers Care Commissioner Of Internal Revenue Name Role Phone [employer] Unavailable Unavailable Problems Medications Allergies, Adverse Reactions, Alerts Immunizations Results Vital Signs Encounters Location Location Details Encounter Type Encounter Number Reason For Visit Attending Provider ADM Date DC Date Status Source OUTPATIENT [id number] YULIA SANTAMARIA 04/23/2016 04/23/2016 Active [facility] Joanna CHAVIS Active [facility] Procedures Plan of Care Social History Assessment and Plan Family History Advance Directives Functional Status
--- OUTSIDE RECORDS SUMMARY | 2017-05-07 09:18 | XMS REPORT | Encounter Summary ---
Author Author [facility] Organization [facility] Address Unknown Phone Unavailable Care Team Providers Care Salvage Winder And Inspector Name Role Phone PCP Unavailable Reason for Visit * Reason Comments Medication Refill Encounter Details Date Type Department Care Team Description 04/23/2017 Refill [facility] Pk Vega MD Physicians - Internal [address] [facility] [place] [address] [place], [place] [id number] [facility] [phone] [place] [address] Social History Tobacco Use Types [...]
[2017-05-07 09:20] VITALS: BP 133/104
--- OUTSIDE RECORDS SUMMARY | 2017-05-07 09:20 | XMS REPORT | Continuity of Care Document ---
Author Author [facility] Organization [facility] Address Unknown Phone Unavailable Allergies Active Description Code Type Severity Reaction Onset Reported/Identified Relationship to Patient Clinical Status Yes [id number] (SULFA (SULFONAMIDE ANTIBIOTICS)) [id number] (SULFA (SULFONAMIDE ANTIBIOTICS)) Mild N/A 04/12/2009 Yes Sulfa (Sulfonamide Antibiotics) [id number] Drug Allergy Unknown N/A 2014 Medications There [...] MILD INTERMITTENT ASTHMA, UNCOMPLICATED 08/30/2015 SHAD NOYOLA FOOD CART ATTENDANT Ot J30.9 ALLERGIC RHINITIS, UNSPECIFIED 08/30/2015 SHAD NOYOLA FOOD CART ATTENDANT Ot J45.901 UNSPECIFIED ASTHMA WITH (ACUTE) EXACERBA [...] 04/09/2017 MICHAEL AVILA Ot R06.83 SNORING 04/09/2017 SOPHIA DO, CORNEL M Ot J45.20 MILD INTERMITTENT ASTHMA, UNCOMPLICATED 04/15/2017 SOPHIA LOCO FOOD CART ATTENDANT Ot R10.11 RIGHT UPPER QUADRANT PAIN 04/28/2017 ANSHU CORDERO RANGEL B Ot D50.0 IRON DEFICIENCY ANEMIA SECONDARY TO BLOO 04/28/2017 ANSHU CORDERO RANGEL B Ot D64.9 ANEMIA, UNSPECIFIED 04/28/2017 ANSHU CORDERO RANGEL B Ot E83.42 HYPOMAGNESEMIA 04/28/2017 ANSHU CORDERO RANGEL B Ot I10 ESSENTIAL (PRIMARY) HYPERTENSION 04/28/2017 JAJA BRASHER DOIC B Ot J45.909 UNSPECIFIED ASTHMA, UNCOMPLICATED 04/28/2017 JAJA BRASHER DOIC B Ot K63.3 ULCER OF INTESTINE 04/28/2017 ANSHU CORDERO RANGEL B Ot K92.2 GASTROINTESTINAL HEMORRHAGE, UNSPECIFIED 04/28/2017 ANSHU CORDERO RANGEL B Ot R33.9 RETENTION OF URINE, UNSPECIFIED 04/28/2017 ANSHU CORDERO RANGEL B Ot Z87.891 PERSONAL HISTORY OF NICOTINE DEPENDENCE 04/28/2017 ANSHU CORDERO RANGEL B Ot Z88.2 ALLERGY STATUS TO SULFONAMIDES STATUS 04/29/2017 CORNEL CORTES DO Ot 493.02 EXTRINSIC ASTHMA, W (ACUTE) EXACERBATION 04/29/2017 CORNEL CORTES DO Ot 786.09 RESPIRATORY ABNORM NEC 04/29/2017 RIKY NEWTON, MARY ALICE Toth Ot 401.9 HYPERTENSION NOS 04/29/2017 RIKY NEWTON, MARY ALICE Toth Ot 786.09 RESPIRATORY ABNORM NEC 04/29/2017 RIKY NEWTON, MARY ALICE Toth Ot 794.31 ABNORM ELECTROCARDIOGRAM 04/29/2017 CORNEL CORTES DO Ot J30.9 ALLERGIC RHINITIS, UNSPECIFIED 04/29/2017 CORNEL CORTES DO Ot J45.909 UNSPECIFIED ASTHMA, UNCOMPLICATED 04/29/2017 CORNEL CORTES DO Ot R06.00 DYSPNEA, UNSPECIFIED 04/29/2017 DARRIAN NEWTON, KULWINDER Sanders Ot R10.32 LEFT LOWER QUADRANT PAIN 04/29/2017 JEANCARLOS SARGENT DO Ot K60.2 ANAL FISSURE, UNSPECIFIED 04/29/2017 JEANCARLOS SARGENT DO Ot K92.1 MELENA 04/29/2017 JEANCARLOS SARGENT DO Ot Z01.818 ENCOUNTER FOR OTHER PREPROCEDURAL EXAMIN 04/29/2017 SHAD NOYOLA APRN Ot J30.9 ALLERGIC RHINITIS, UNSPECIFIED 04/29/2017 SHAD NOYOLA APRN Ot J45.901 UNSPECIFIED ASTHMA WITH (ACUTE) EXACERBA 04/29/2017 MICHAEL AVILA Ot I10 ESSENTIAL (PRIMARY) HYPERTENSION 04/29/2017 MICHAEL AVILA Ot J45.998 OTHER ASTHMA 04/29/2017 MICHAEL AVILA Ot R06.2 WHEEZING 04/29/2017 MICHAEL AVILA Ot R06.83 SNORING 04/29/2017 CORNEL CORTES DO Ot J45.20 MILD INTERMITTENT ASTHMA, UNCOMPLICATED 04/29/2017 SOPHIA LOCO APRN Ot R10.11 RIGHT UPPER QUADRANT PAIN 04/29/2017 DARRIAN NEWTON, KULWINDER Sanders Ot K87 DISORD OF GB, BILIARY TRAC AND PANCREAS 04/29/2017 KULWINDER COLMENARES MD Ot R10.11 RIGHT UPPER QUADRANT PAIN 04/29/2017 KULWINDER COLMENARES MD Ot R11.10 VOMITING, UNSPECIFIED 05/01/2017 SOPHIA LOCO APRN Ot R10.11 RIGHT UPPER [...] NEGATIVE FOR ANTIGEN AND TOXIN A/B NRG Stool bacteria identification by culture - 04/26/17 15:30 Stool bacteria identification by culture N2 NRG PARASITE COMPLETE EXAM STOOL - 04/26/17 15:30 PARASITE COMPLETE EXAM STOOL No Parasites seen NRG Blood type T Indirect antibody screen panel - 04/26/17 15:47 ABO+Rh group OP NRG Transfusion band number [id number] NRG Blood group antibody screen NEGATIVE NRG Automated blood complete blood count (hemogram) panel - 04/26/17 17:10 Blood leukocytes automated count (number/volume) 16.2 10*3/uL 4.3-11.0 Blood erythrocytes automated count (number/volume) 3.73 10*6/uL 4.35-5.85 Venous blood hemoglobin measurement (mass/volume) 10.7 g/dL 13.3-17.7 Blood hematocrit (volume fraction) 33 % 40-54 Automated erythrocyte mean corpuscular volume 87 [foz_us] 80-99 Automated erythrocyte mean corpuscular hemoglobin (mass per erythrocyte) 29 pg 25-34 Automated erythrocyte mean corpuscular hemoglobin concentration measurement ( mass/volume) 33 g/dL 32-36 Automated erythrocyte distribution width ratio 12.4 % 10.0-14.5 Automated blood platelet count (count/volume) 345 10*3/uL 130-400 Automated blood platelet mean volume measurement 10.4 [foz_us] 7.4-10.4 Complete blood count (CBC) with automated white blood cell (WBC) differential - 04/27/17 04:40 Blood leukocytes automated count (number/volume) 9.7 10*3/uL 4.3-11.0 Blood erythrocytes automated count (number/volume) 3.14 10*6/uL 4.35-5.85 Venous blood hemoglobin measurement (mass/volume) 9.0 g/dL 13.3-17.7 Blood hematocrit (volume fraction) 29 % 40-54 Automated erythrocyte mean corpuscular volume 92 [foz_us] 80-99 Automated erythrocyte mean corpuscular hemoglobin (mass per erythrocyte) 29 pg 25-34 Automated erythrocyte mean corpuscular hemoglobin concentration measurement ( mass/volume) 31 g/dL 32-36 Automated erythrocyte distribution width ratio 12.5 % 10.0-14.5 Automated blood platelet count (count/volume) 282 10*3/uL 130-400 Automated blood platelet mean volume measurement 8.9 [foz_us] 7.4-10.4 Automated blood neutrophils/100 leukocytes 49 % 42-75 Automated blood lymphocytes/100 leukocytes 18 % 12-44 Blood monocytes/100 leukocytes 8 % 0-12 Automated blood eosinophils/100 leukocytes 24 % 0-10 Automated blood basophils/100 leukocytes 0 % 0-10 Blood neutrophils automated count (number/volume) 4.8 10*3 1.8-7.8 Blood lymphocytes automated count (number/volume) 1.8 10*3 1.0-4.0 Blood monocytes automated count (number/volume) 0.8 10*3 0.0-1.0 Automated eosinophil count 2.4 10*3/uL 0.0-0.3 Automated blood basophil count (count/volume) 0.0 10*3/uL 0.0-0.1 Comprehensive metabolic panel - 04/27/17 04:40 Serum or plasma sodium measurement (moles/volume) 140 mmol/L 135-145 Serum or plasma potassium measurement (moles/volume) 3.7 mmol/L 3.6-5.0 Serum or plasma chloride measurement (moles/volume) 109 mmol/L 98-107 Carbon dioxide 19 mmol/L 21-32 Serum or plasma anion gap determination (moles/volume) 12 mmol/L 5-14 Serum or plasma urea nitrogen measurement (mass/volume) 8 mg/dL 7-18 Serum or plasma creatinine measurement (mass/volume) 0.71 mg/dL 0.60-1.30 Serum or plasma urea nitrogen/creatinine mass ratio 11 NRG Serum or plasma creatinine measurement with calculation of estimated glomerular filtration rate > NRG Serum or plasma glucose measurement (mass/volume) 96 mg/dL 70-105 Serum or plasma calcium measurement (mass/volume) 7.7 mg/dL 8.5-10.1 Serum or plasma total bilirubin measurement (mass/volume) 0.4 mg/dL 0.1-1.0 Serum or plasma alkaline phosphatase measurement (enzymatic activity/volume) 96 U/L 40-136 Serum or plasma aspartate aminotransferase measurement (enzymatic activity/ volume) 16 U/L 5-34 Serum or plasma alanine aminotransferase measurement (enzymatic activity/volume ) 13 U/L 0-55 Serum or plasma protein measurement (mass/volume) 5.9 g/dL 6.4-8.2 Serum or plasma albumin measurement (mass/volume) 2.7 g/dL 3.2-4.5 Blood manual differential performed detection - 04/27/17 04:40 Blood monocytes/100 leukocytes 17 % NRG Manual blood segmented neutrophils/100 leukocytes 46 % NRG Blood band neutrophils/100 leukocytes 0 % NRG Manual blood lymphocytes/100 leukocytes 19 % NRG Manual eosinophils/100 leukocytes in nose 18 % NRG Manual blood basophils/100 leukocytes 0 % NRG Blood erythrocyte morphology finding identification NORMAL NRG Serum or plasma phosphate measurement (mass/volume) - 04/27/17 04:40 Serum or plasma phosphate measurement (mass/volume) 3.2 mg/dL 2.3-4.7 Magnesium - 04/27/17 04:40 Magnesium 1.6 mg/dL 1.8-2.4 Complete urinalysis with reflex to culture - 04/27/17 06:00 Urine color determination YELLOW NRG Urine clarity determination SLIGHTLY CLOUDY NRG Urine pH measurement by test strip 5 5-9 Specific gravity of urine by test strip 1.025 1.016- 1.022 Urine protein assay by test strip, semi-quantitative 2+ NEGATIVE Urine glucose detection by automated test strip NEGATIVE NEGATIVE Erythrocytes detection in urine sediment by light microscopy 2+ NEGATIVE Urine ketones detection by automated test strip 3+ NEGATIVE Urine nitrite detection by test strip NEGATIVE NEGATIVE Urine total bilirubin detection by test strip NEGATIVE NEGATIVE Urine urobilinogen measurement by automated test strip (mass/volume) NORMAL NORMAL Urine leukocyte esterase detection by dipstick 1+ NEGATIVE Automated urine sediment erythrocyte count by microscopy (number/high power field) RARE NRG Automated urine sediment leukocyte count by microscopy (number/high power field ) [HPF] NRG Bacteria detection in urine sediment by light microscopy FEW NRG Squamous epithelial cells detection in urine sediment by light microscopy RARE NRG Crystals detection in urine sediment by light microscopy NONE NRG Casts detection in urine sediment by light microscopy NONE NRG Mucus detection in urine sediment by light microscopy MODERATE NRG Complete urinalysis with reflex to culture YES NRG Bacterial urine culture - 04/27/17 06:00 Bacterial urine culture NG NRG Complete blood count (CBC) with automated white blood cell (WBC) differential - 04/28/17 05:33 Blood leukocytes automated count (number/volume) 7.2 10*3/uL 4.3-11.0 Blood erythrocytes automated count (number/volume) 2.81 10*6/uL 4.35-5.85 Venous blood hemoglobin measurement (mass/volume) 8.4 g/dL 13.3-17.7 Blood hematocrit (volume fraction) 24 % 40-54 Automated erythrocyte mean corpuscular volume 85 [foz_us] 80-99 Automated erythrocyte mean corpuscular hemoglobin (mass per erythrocyte) 30 pg 25-34 Automated erythrocyte mean corpuscular hemoglobin concentration measurement ( mass/volume) 35 g/dL 32-36 Automated erythrocyte distribution width ratio 12.3 % 10.0-14.5 Automated blood platelet count (count/volume) 258 10*3/uL 130-400 Automated blood platelet mean volume measurement 10.2 [foz_us] 7.4-10.4 Automated blood neutrophils/100 leukocytes 37 % 42-75 Automated blood lymphocytes/100 leukocytes 22 % 12-44 Blood monocytes/100 leukocytes 8 % 0-12 Automated blood eosinophils/100 leukocytes 33 % 0-10 Automated blood basophils/100 leukocytes 0 % 0-10 Blood neutrophils automated count (number/volume) 2.6 10*3 1.8-7.8 Blood lymphocytes automated count (number/volume) 1.6 10*3 1.0-4.0 Blood monocytes automated count (number/volume) 0.6 10*3 0.0-1.0 Automated eosinophil count 2.4 10*3/uL 0.0-0.3 Automated blood basophil count (count/volume) 0.0 10*3/uL 0.0-0.1 Whole blood basic metabolic panel - 04/28/17 05:33 Serum or plasma sodium measurement (moles/volume) 140 mmol/L 135-145 Serum or plasma potassium measurement (moles/volume) 3.5 mmol/L 3.6-5.0 Serum or plasma chloride measurement (moles/volume) 108 mmol/L 98-107 Carbon dioxide 23 mmol/L 21-32 Serum or plasma anion gap determination (moles/volume) 9 mmol/L 5-14 Serum or plasma urea nitrogen measurement (mass/volume) 3 mg/dL 7-18 Serum or plasma creatinine measurement (mass/volume) 0.68 mg/dL 0.60-1.30 Serum or plasma urea nitrogen/creatinine mass ratio 4 NRG Serum or plasma creatinine measurement with calculation of estimated glomerular filtration rate > NRG Serum or plasma glucose measurement (mass/volume) 80 mg/dL 70-105 Serum or plasma calcium measurement (mass/volume) 7.8 mg/dL 8.5-10.1 Capillary blood glucose measurement by glucometer (mass/volume) - 04/28/17 10: 15 Capillary blood glucose measurement by glucometer (mass/volume) 104 mg/dL 70-110 Encounters ACCT No. Visit Date/Time Discharge Status Pt. Type Provider Facility Loc./Unit Complaint [id number] 05/04/2017 05:39:00 05/04/2017 11:36:00 DIS Outpatient JEANCARLOS SARGENT DO [facility] PREOP BILIARY DYSKINESIA [id number] 04/26/2017 16:00:00 04/28/2017 14:50:00 DIS Inpatient RANGEL BRASHER DO [facility] 4TH GI BLEED,ASTHMA WITH ACUTE EXACERBATION [id number] 04/23/2017 08:15:00 04/23/2017 23:59:59 CLS Preadmit KULWINDER COLMENARES MD [facility] RAD VOMITING [id number] 04/22/2017 09:46:00 04/22/2017 23:59:59 CLS Outpatient KULWINDER COLMENARES MD [facility] CARD ABDOMINAL PAIN [id number] 04/10/2017 08:17:00 04/10/2017 23:59:59 CLS Outpatient SOPHIA LOCO APRN [facility] RAD ABD PAIN [id number] 05/13/2016 13:00:00 05/13/2016 23:59:59 CLS Preadmit CORNEL CORTES DO [facility] SDC ASTHMA,DYSPNEA [id number] 03/27/2016 12:48:00 05/12/2016 00:01:00 DIS Outpatient CORNEL CORTES DO [facility] ASTHMA,DYSPNEA [id number] 01/30/2016 10:38:00 02/11/2016 00:01:00 DIS Outpatient CORNEL CORTES DO [facility] ASTHMA,DYSPNEA [id number] 01/02/2016 08:03:00 01/02/2016 23:59:59 CLS Outpatient MICHAEL AVILA [facility] LAB HTN, ASTHMA, SNORING [id number] 10/30/2015 16:50:00 11/06/2015 00:01:00 DIS Outpatient CORNEL CORTES DO [facility] ASTHMA,DYSPNEA [id number] 07/24/2015 12:50:00 07/29/2015 00:01:00 DIS Outpatient CORNEL CORTES DO [facility] ASTHMA,DYSPNEA [id number] 07/24/2015 13:24:00 07/24/2015 23:59:59 CLS Outpatient SHAD NOYOLA APRN [facility] LAB ALLERGIC RHINITIS, ASTHMA, BRONCHITIS [id number] 06/16/2015 11:26:00 06/16/2015 15:09:00 DIS Emergency CHERRIE JOHNSTON [facility] ER FEVER/VOMITING [id number] 06/05/2015 07:00:00 06/05/2015 09:03:00 DIS Outpatient JEANCARLOS SARGENT DO [facility] SCREENING,BLOOD IN STOOLS [id number] 05/31/2015 05:36:00 05/31/2015 23:59:59 CLS Outpatient JEANCARLOS SARGENT DO [facility] PREOP BLOOD IN STOOLS [id number] 05/17/2015 08:39:00 05/17/2015 23:59:59 CLS Outpatient KULWINDER COLMENARES MD [facility] RAD ABD PAIN [id number] 04/17/2015 11:35:00 04/23/2015 00:01:00 DIS Outpatient CORNEL CORTES DO [facility] SDC ASTHMA,DYSPNEA [id number] 03/29/2015 19:55:00 03/30/2015 06:30:00 DIS Outpatient CORNEL CORTES DO [facility] SLEEP SNORING, HYPERTENSION, EXCESSIVE SLEEPINESS [id number] 03/02/2015 14:50:00 03/02/2015 23:59:59 CLS Outpatient CORNEL CORTES DO [facility] RAD ASTHMA,ALLERGIC RHINITIS, DYSPNEA [id number] 01/08/2015 12:00:00 01/17/2015 00:01:00 DIS Outpatient CORNEL CORTES DO [facility] ASTHMA,DYSPNEA [id number] 12/20/2014 13:36:00 12/20/2014 23:59:59 CLS Outpatient MARY ALICE LAN MD [facility] CARD DYSPNEA,ABNORMAL EKG, HTN [id number] 12/07/2014 00:12:00 12/07/2014 23:59:59 CLS Preadmit CORNEL CORTES DO [facility] RAD ASTHMA,DYSPNEA,ALLERGIC RHINITIS [id number] 09/07/2014 14:46:00 12/06/2014 00:01:00 DIS Outpatient CORNEL CORTES DO [facility] RAD [id number] 11/15/2014 14:39:00 11/15/2014 14:54:00 DIS Outpatient CORNEL CORTES DO [facility] SLEEP OBSERVED APNEA, SNORING , EDS, AM HEADACHE [id number] 08/23/2014 15:45:00 08/23/2014 23:59:59 CLS Outpatient CORNEL CORTES DO [facility] RT [id number] 06/01/2014 08:42:00 06/01/2014 23:59:59 CLS Outpatient KULWINDER COLMENARES MD [facility] RAD [id number] 05/10/2014 14:55:00 05/14/2014 10:15:00 DIS Inpatient KULWINDER COLMENARES MD [facility] 4TH HYPOXIA,BRONCHOSPASM, PANSINUSITISS [id number] 04/27/2014 09:57:00 04/27/2014 23:59:59 CLS Outpatient CORNEL CORTES DO [facility] RAD [id number] 03/08/2014 10:43:00 03/08/2014 23:59:59 CLS Outpatient KULWINDER COLMENARES MD [facility] RAD [id number] 02/06/2014 12:28:00 02/06/2014 23:59:59 CLS Outpatient [id number] 12/22/2013 01:18:00 12/22/2013 02:43:00 DIS Emergency [id number] 05/07/2017 10:45:00 PEN Preadmit JEANCARLOS SARGENT DO [facility] SDC BILIARY DYSKINESIA [id number] 06/16/2014 07:22:00 Document Registration [id number] 06/07/2014 15:43:00 Document Registration
[2017-05-07] MEDS ORDERED: ceFAZolin 2 GM/50 ML NS 50 ML IV ONE (09:30)
[2017-05-07] MEDS: LACTATED RINGERS 1,000 ML IV PRN ×2 (09:45→11:21)
[2017-05-07] MEDS ORDERED: ROCURONIUM 50 MG/5 ML (ZEMURON) VIAL IV ONE (10:11)
[2017-05-07] MEDS ORDERED: SEVOFLURANE (ULTANE) 15 ML INHAL SOLN ONE ×4 (10:11→12:04)
[2017-05-07] MEDS ORDERED: proPOfol 200 MG/20 ML (DIPRIVAN) VIAL IV ONE (10:11)
[2017-05-07] MEDS ORDERED: LIDOCAINE PF 2% 5 ML (XYLOCAINE) VIAL ONE (10:11)
[2017-05-07] MEDS ORDERED: MIDAZOLAM 2 MG/2 ML (VERSED) VIAL ONE (10:12)
[2017-05-07] MEDS ORDERED: fentaNYL INJECTION 100 MCG/2 ML AMP ONE ×2 (10:12→11:10)
[2017-05-07] MEDS ORDERED: RT-ALBUTEROL SULF 2.5 MG/3 ML PRE-MIX VIAL ONE (10:13)
[2017-05-07] MEDS ORDERED: RT-ALBUTEROL SULF 2.5 MG/3 ML PRE-MIX VIAL INH STA (10:14)
[2017-05-07] MEDS ORDERED: DEXAMETHASONE 10 MG/ML (DECADRON) 1 ML VIAL ONE (10:16)
[2017-05-07] MEDS ORDERED: ONDANSETRON 4 MG/2 ML (SDV) Z0FRAN ONE ×2 (10:16→11:49)
[2017-05-07] MEDS ORDERED: LIDOCAINE/EPI 1%-1:200,000 (XYLOCAINE) 10 ML VIAL ONE (10:29)
[2017-05-07] MEDS ORDERED: BUPIVACAINE 0.25% 30 ML (SENSORCAINE) VIAL ONE (10:29)
[2017-05-07] MEDS ORDERED: BUPIVACAINE 0.5% 30 ML (SENSORCAINE) VIAL ONE (10:29)
[2017-05-07] MEDS ORDERED: LIDOCAINE 1% INJ 20 ML (XYLOCAINE) VIAL ONE (10:35)
[2017-05-07] MEDS ORDERED: NEOSTIGMINE (BLOXIVERZ ) 1 MG/1ML 10 ML VIAL ONE (11:43)
[2017-05-07] MEDS ORDERED: GLYCOPYRROLATE 0.2 MG/ML (ROBINUL) 2 ML VIAL ONE (11:43)
--- NOTE | 2017-05-07 12:18 | Progress Note-Post Operative ---
Post-Operative Progess Note Surgeon (s)/Crt (s) Surgeon JEANCARLOS SARGENT DO Crt: Dr. Laguerre Pre-Operative Diagnosis biliary dyskinesia Post-Operative Diagnosis same Procedure & Operative Findings Date of Procedure 05/07/17 Procedure Performed/Findings lap shaq c ioc Anesthesia Type gen Estimated Blood Loss Estimated blood loss (mL): min Specimens/Packing Specimens Removed gallbladder JEANCARLOS SARGENT DO May 07, 2017 12:18
[2017-05-07] MEDS ORDERED: DOCU-143 PO (12:19)
[2017-05-07] MEDS ORDERED: ACHD5005 PO (12:19)
--- NOTE | 2017-05-07 12:21 | Discharge Inst-Simple/Standard ---
Discharge Inst-Standard Discharge Medications New, Converted or Re-Newed RX: RX on Chart Patient Instructions/Follow Up Plan of Care/Instructions/FU: 2 weeks Fili Activity as Tolerated: No Discharge Diet: Regular Diet Other Inst to Patient Follow up Appt: Make appointment for 2 weeks. Instructions: No lifting greater than 10 pounds. No strenuous activity. May shower in 24 hours, no tub bath or soaking. Use incentive spirometer at home as directed. No Smoking Skin/Wound Care: You have special glue over in incision it will fall off on its own. Symptoms to Report: Appetite Changes, Extremity Discoloration, Numbness/Tingling, Swelling Increased , Bleeding Excessive, Eyesight Changes, Pain Increased, Urine Color Change, Constipation(Persistent), Fever over 101 degree F, Pain/Pressure in chest, Urinating Difficulty, Cough Up/Vomit Blood, Heart Beat Irreg/Pounding, Pain/ Pressure in jaw, Vaginal Bleeding Increase, Cramps in feet or legs, Lightheadedness, Pain/Pressure in shoulder, Diarrhea(Persistent), Memory Changes Suddenly, Questions/Concerns, Weight gain consecutive days, Dizziness/ Fainting, Nausea/Vomiting, Shortness of Breath, Weight gain over 2 pounds. If eyes or skin turn yellow notify physician. If questions or concerns contact your physician Or seek help at emergency department. JEANCARLOS SARGENT DO May 07, 2017 12:21
--- NOTE | 2017-05-07 12:25 | Diagnostic Imaging Report ---
INDICATION: Fluoroscopy for intraoperative cholangiogram. PROCEDURE: Fluoroscopy was provided in the OR for intraoperative cholangiogram. 8 seconds of fluoroscopy was utilized. Multiple images demonstrate contrast being injected via the cystic duct remnant. There is contrast within normal caliber intrahepatic and extrahepatic bile ducts. No filling defects are seen. Contrast does pass into the duodenum. IMPRESSION: No evidence of retained common duct stone. Dictated by: Dictated on workstation # [id number]
[2017-05-07] MEDS ORDERED: fentaNYL INJECTION 100 MCG/2 ML AMP IVP PRN (12:30)
[2017-05-07] MEDS ORDERED: ONDANSETRON 4 MG/2 ML (SDV) Z0FRAN IVP PRN (12:30)
[2017-05-07] MEDS ORDERED: MEPERIDINE (DEMEROL) INJ 50 MG/ML IVP PRN (12:30)
[2017-05-07] MEDS: morphine INJ 10 MG/ML 1ML (SYR OR VIAL) IVP PRN ×2 (12:40→12:46)
[2017-05-07 13:15] VITALS: BP 136/87
[2017-05-07 13:16] VITALS: BP 136/87
[2017-05-07 13:45] VITALS: BP 133/90
[2017-05-07 14:15] VITALS: BP 134/90
--- NOTE | 2017-05-08 03:38 | OPERATIVE REPORT ---
DATE OF SERVICE: 05/07/2017 PREOPERATIVE DIAGNOSIS: Biliary dyskinesia. POSTOPERATIVE DIAGNOSIS: Biliary dyskinesia. PROCEDURE: Laparoscopic cholecystectomy with intraoperative cholangiogram. SURGEON: Moose Penn DO REALTY LOAN SPECIALIST: Dr. Laguerre, assisted in retraction, dissection and closure. ANESTHESIA: General. ESTIMATED BLOOD LOSS: Minimal. COMPLICATIONS: None. INDICATIONS: The patient is 46-year-old male, who has been having epigastric right upper quadrant abdominal pain with eating some foods. He had a workup, which demonstrated that the gallbladder have an ejection fraction of approximately 25% consistent with biliary dyskinesia. The patient was explained risks and benefits of procedure and wished to proceed with procedure. Consent was signed on the chart. PROCEDURE IN DETAIL: The patient was taken to the operating suite, prepped and draped in sterile fashion. Surgical pause was performed. Local anesthetic was infiltrated prior to incisions. A 12 mm incision was made at the umbilicus and cautery was used to dissect down to the fascia and then scored. It was grasped with Kostas's and elevated and the abdomen was entered. A 0 Vicryl suture was placed in a [id number] fashion for closure at the end. A balloon trocar was inserted into the abdomen and pneumoperitoneum was achieved. Under direct visualization of the laparoscope, a 5 mm trocar was placed in the subxiphoid region and two 5 mm trocars were placed in the right upper quadrant. The gallbladder had part of the omentum that adhered to the gallbladder. This was then taken down with [place] and cautery. Gallbladder was elevated above the liver. The cystic duct and cystic artery were then dissected out. Clips were placed on the proximal and distal portion of the cystic artery and a clip was placed on the distal portion of the cystic duct. The cystic duct was then partially transected and an arrow catheter was then inserted into the duct and cholangiogram was then performed. There were no filling defects. Contrast made its way into the duodenum without difficulty. The Arrow catheter was removed. Clips were placed on the proximal portion of the cystic duct and the artery was then transected. Hook cautery was used to remove the gallbladder from the gallbladder fossa achieving hemostasis. The gallbladder was placed in an Endobag and removed through the 12 mm trocar site. The area was then irrigated with copious amounts of irrigation and suction. The patient also had previous cecum bleeding and therefore, the right colon was inspected. No necrotic areas were able to be visualized. There was a small adhesion from the cecum up to the abdominal wall, which did have a staple from previous appendectomy present. No evidence of any other pathology noted at the cecum or terminal ileum. There also is a small left inguinal hernia noted intraabdominally. The abdomen was then again irrigated and suctioned. It was then desufflated, the trocars were removed. The 12 mm fascial defect was closed with a previous distal Vicryl suture. The incisions were irrigated and the skin was then closed using 4-0 Monocryl in a subcuticular fashion. The incisions were washed and dried and Dermabond was placed over incisions. The patient tolerated procedure well without any complications and was taken to recovery room in stable condition. Job ID: [id number] DocumentID: [id number] Dictated Date: 05/07/2017 19:42:42 Ui Software Developer Date: 05/08/2017 03:37:24 Dictated By: DO GEORGE ESTRELLA
== END 2017-05-07 14:35 | disposition home or self-care (01) ==
LOC: SDC 09:15
PROVIDERS: ATTEND Surgery
DX: K81.2 Acute cholecystitis with chronic cholecystitis (principal); I10 Essential (primary) hypertension; J45.998 Other asthma; D50.0 Iron deficiency anemia secondary to blood loss (chronic); K51.811 Other ulcerative colitis with rectal bleeding; Z79.899 Other long term (current) drug therapy
CPT/HCPCS: 87081

== ENCOUNTER 2019-03-11 12:12 | Outpatient (RCR) | payer OTHER ==
[~2019-03-11 12:12] MED LIST changes: +ACHD5005 PO; -IPRA3AMP IH; +IPRA3AMP31 IH
--- NOTE | 2019-03-11 12:47 | Diagnostic Imaging Report ---
INDICATION: Persistent cough for 2 weeks. TIME OF EXAM: 12:25 PM Correlation is made with prior chest from 03/02/2015. FINDINGS: The heart size is normal. The pulmonary vascularity is unremarkable. The lungs are clear. No infiltrate, effusion or pneumothorax is detected. IMPRESSION: No acute cardiopulmonary process is detected. Dictated by: Dictated on workstation # [id number]
== END 2019-08-29 | disposition home or self-care (01) ==
LOC: LAB 12:12 → RAD 12:12 → EDSTATUS 08-29 16:05
PROVIDERS: ATTEND Family Medicine
DX: J45.50 Severe persistent asthma, uncomplicated (principal); M30.1 Polyarteritis with lung involvement [Churg-Strauss]
CPT/HCPCS: 71046

== ENCOUNTER → 2020-03-27 | Outpatient (CLI) | payer OTHER ==
[~2020-03-27] MED LIST changes: +RT-ALBUTEROL SULF 2.5 MG/3 ML PRE-MIX VIAL INH ONE
[2020-03-27 09:11] LABS: BASOPHILS % (AUTO) 1 % (0-10); EOSINOPHILS # (AUTO) 0.4 10^3/uL (0.0-0.3); EOSINOPHILS % (AUTO) 4 % (0-10); HEMATOCRIT 42 % (40-54); HEMOGLOBIN 14.6 g/dL (13.3-17.7); LYMPHOCYTES # (AUTO) 0.6 10^3/uL (1.0-4.0); LYMPHOCYTES % (AUTO) 7 % (12-44); MEAN CORPUSCULAR HEMOGLOBIN 34 pg (25-34); MEAN CORPUSCULAR HGB CONC 35 g/dL (32-36); MEAN CORPUSCULAR VOLUME 98 fL (80-99); MEAN PLATELET VOLUME 9.1 fL (9.0-12.2); MONOCYTES # (AUTO) 0.8 10^3/uL (0.0-1.0); MONOCYTES % (AUTO) 10 % (0-12); NEUTROPHILS # (AUTO) 6.3 10^3/uL (1.8-7.8); NEUTROPHILS % (AUTO) 78 % (42-75); PLATELET COUNT 230 10^3/uL (130-400)
[2020-03-27 09:37] LABS: ALANINE AMINOTRANSFERASE 17 U/L (0-55); ALBUMIN 4.2 GM/DL (3.2-4.5); ALKALINE PHOSPHATASE 71 U/L (40-136); BILIRUBIN,DIRECT 0.2 MG/DL (0.0-0.3); BILIRUBIN,INDIRECT 0.3 MG/DL; BILIRUBIN,TOTAL 0.5 MG/DL (0.1-1.0); BUN/CREATININE RATIO 12; CALCIUM 9.1 MG/DL (8.5-10.1); CARBON DIOXIDE 26 MMOL/L (21-32); CHLORIDE 107 MMOL/L (98-107); CREATININE SERUM 0.91 MG/DL (0.60-1.30); GFR ESTIMATED > 60; GLUCOSE 114 MG/DL (70-105); POTASSIUM 3.5 MMOL/L (3.6-5.0); SODIUM 144 MMOL/L (135-145); TOTAL PROTEIN 7.2 GM/DL (6.4-8.2)
--- NOTE | 2020-03-27 09:55 | Diagnostic Imaging Report ---
EXAMINATION: Chest 2 view HISTORY: History of eosinophilic granulomatosis. Currently asymptomatic. COMPARISON: 03/11/2019. FINDINGS: The lung volumes are normal. No focal consolidation is seen. No large pleural effusion or pneumothorax is seen. The cardiomediastinal silhouette is normal in size and contour. No acute osseous abnormality is seen. IMPRESSION: 1. No acute pleuroparenchymal process. Dictated by: Dictated on workstation # [id number]
[2020-03-27 10:08] LABS: BILIRUBIN,URINE NEGATIVE (NEGATIVE); CLARITY,URINE CLEAR; COLOR,URINE YELLOW; GLUCOSE, URINE (UA) NEGATIVE (NEGATIVE); KETONES,URINE TRACE (NEGATIVE); LEUKOCYTE ESTERASE ,URINE NEGATIVE (NEGATIVE); NITRITE,URINE NEGATIVE (NEGATIVE); PH,URINE 5.5 (5-9); PROTEIN,URINE NEGATIVE (NEGATIVE)
[2020-03-27 10:16] LABS: WBC,URINE RARE /HPF
[2020-03-27 10:17] LABS: BACTERIA,URINE NEGATIVE /HPF
== END ==
LOC: RT 08:00
PROVIDERS: ATTEND Family Medicine
DX: M30.1 Polyarteritis with lung involvement [Churg-Strauss] (principal)
CPT/HCPCS: 36415; 71046; 80053; 80076; 81000; 85025; 86021; 94060; 94726; 94729

== ENCOUNTER → 2021-07-05 | Outpatient (CLI) | payer OTHER ==
[~2021-07-05] MED LIST changes: -RT-ALBUTEROL SULF 2.5 MG/3 ML PRE-MIX VIAL INH ONE
--- NOTE | 2021-07-05 09:58 | Diagnostic Imaging Report ---
INDICATION: Right knee pain. TIME OF EXAM: 9:19 AM 3 views of the right knee were obtained. Alignment is normal. Joint spaces are well maintained. Articular surfaces are smooth. No fracture, dislocation or effusion is detected. IMPRESSION: No acute bony abnormality is detected. Dictated by: Dictated on workstation # [id number]
== END ==
LOC: RAD 08:55
PROVIDERS: ATTEND Nurse Practitioner Family
DX: M25.561 Pain in right knee (principal)
CPT/HCPCS: 73562

== ENCOUNTER → 2021-07-19 | Outpatient (CLI) | payer OTHER ==
--- NOTE | 2021-07-19 11:51 | Diagnostic Imaging Report ---
EXAMINATION: Magnetic resonance imaging of the right knee without intravenous contrast DATE: July 19, 2021. COMPARISON: Right knee radiographs July 05, 2021. INDICATION: 50-year-old male, right knee pain. TECHNIQUE: Multiplanar, multisequence non contrast enhanced MR imaging was accomplished. FINDINGS: MENISCI: The medial meniscus is intact. The lateral meniscus is intact. LIGAMENTS AND TENDONS: The anterior and posterior cruciate ligaments are intact. The medial collateral ligament is intact. The iliotibial band, mid third lateral capsular ligament, fibular collateral ligament, biceps femoris tendon and conjoined tendon are intact. The quadriceps tendon and patella ligament are intact. JOINT: The articular cartilage surfaces are intact. There is no knee joint effusion, prominent synovitis, or intra-articular body. BONE: There is edema-like signal in the medial tibial plateau and also in the medial aspect of the medial femoral condyle. There is no identified fracture line. This likely reflects a bone contusion. Stress related marrow changes would be an additional differential diagnostic consideration. The additional bone marrow signal is unremarkable. BURSAE AND SOFT TISSUES: No Bakers cyst. IMPRESSION: 1. Intact menisci and cruciate ligaments. Additional ligaments and tendons are intact. 2. Edema-like signal in the medial tibial plateau and medial margin of the medial femoral condyle most likely reflecting bone contusions versus stress related marrow changes. No acute fracture. 3. Intact articular cartilage. No knee joint effusion. Dictated by: Dictated on workstation # [id number]
== END ==
LOC: RAD 08:45
PROVIDERS: ATTEND Nurse Practitioner Family
DX: M25.561 Pain in right knee (principal)
CPT/HCPCS: 73721

== ENCOUNTER 2021-09-20 07:39 | Emergency (ER) | payer OTHER ==
[~2021-09-20] VITALS: Ht 185.4 cm; Wt 100.0 kg
[~2021-09-20 07:39] MED LIST changes: +OMEP20TA56 PO; -OMEP20TA7 PO
[2021-09-20] MEDS ORDERED: ACETAMINOPHEN 500 MG TAB (TYLENOL) PO ONE (08:00)
[2021-09-20] MEDS ORDERED: ONDANSETRON 4 MG/2 ML (SDV) Z0FRAN IVP ONE (08:00)
[2021-09-20] MEDS ORDERED: LACTATED RINGERS 1,000 ML IV ONE (08:00)
--- NOTE | 2021-09-20 08:00 | ED Fever ---
History of Present Illness General Stated Complaint: R EAR PAIN, SORE THROAT,ULLOA,CHILLS,FEVER Source: patient, family Exam Limitations: no limitations History of Present Illness Date Seen by Provider: Sep 20, 2021 Time Seen by Provider: 07:42 Initial Comments 50-year-old male with past medical history of eosinophilic esophagitis coming in due to 2 days of fever, 3 days of sore throat, cough, and right ear pain. Has not had any antipyretics today. Also has some nausea and dry heaving last night. He has had some loose stools that are nonbloody. Denies any chest pain, shortness of breath, abdominal pain, weakness, numbness, headache, vision changes, neck stiffness, rash that is new, or any other concerns. He is vaccinated for COVID x2. Allergies and Home Medications Allergies Coded Allergies: Sulfa (Sulfonamide Antibiotics) (Unverified Allergy, Unknown, 05/10/14) Patient Home Medication List Home Medication List Reviewed: Yes Albuterol Sulfate (Proair Hfa) 1 Puff Puff, 2 PUFF IH Q4H PRN for SHORTNESS OF BREATH, (Reported) Entered as Reported by: GAYATRI CHAIREZ on 04/26/17 1827 Cetirizine HCl (Zyrtec) 10 Mg Capsule, 10 MG PO DAILY PRN for ALLERGIES, (Reported) Entered as Reported by: LUIS CURIEL on 01/08/15 1314 Docusate Sodium (Colace) 100 Mg Capsule, 100 MG PO DAILY Prescribed by: JEANCARLOS SARGENT on 05/07/17 1219 Doxycycline Hyclate (Doxycycline Hyclate) 100 Mg Tablet, 100 MG PO BID Prescribed by: PAULY CISNEROS on 09/20/21 0859 Fluticasone Propionate (Flovent Hfa 220 mcg) 1 Ea Aero, 2 PUFF IH BID, (Reported) Entered as Reported by: GAYATRI CHAIREZ on 04/26/17 1827 Fluticasone/Salmeterol (Advair 500-50 Diskus) 1 Each Blst.w.dev, 2 PUFF IH BID, (Reported) Entered as Reported by: BILLIE ZEPEDA on 06/01/15 1525 Hydrocodone Bit/Acetaminophen (Lortab 5 Mg Tablet) 1 Tab Tab, 1 TAB PO Q4H PRN Prescribed by: JEANCARLOS SARGENT on 05/07/17 1219 Review of Systems Review of Systems Constitutional: chills, fever EENTM: throat pain; No blurred vision, No nose congestion Respiratory: cough; No short of breath Cardiovascular: No chest pain Gastrointestinal: No abdominal pain; nausea; No vomiting Genitourinary: no symptoms reported Musculoskeletal: no symptoms reported Skin: no symptoms reported Psychiatric/Neurological: No Symptoms Reported Hematologic/Lymphatic: No Symptoms Reported Immunological/Allergic: no symptoms reported Past Yoxlwcg-Bqaprx-Tsbnnf Hx Patient Social History Tobacco Use?: No Substance use?: No Alcohol Use?: Yes Alcohol Frequency: Once in a while Immunizations Up To Date Tetanus Booster (TDap): Unknown PED Vaccines UTD: No Seasonal Allergies Seasonal Allergies: No Past Medical History Surgeries: Yes (sinus sx) Appendectomy, Nose Respiratory: Yes Asthma Currently Using CPAP: No Currently Using BIPAP: No Cardiac: Yes Hypertension Neurological: No Reproductive Disorders: No Sexually Transmitted Disease: No HIV/AIDS: No Genitourinary: No Gastrointestinal: No Gastrointestinal Bleed, Gall Bladder Disease Musculoskeletal: No Endocrine: No HEENT: No Cancer: No Psychosocial: No Integumentary: No Blood Disorders: No Adverse Reaction/Blood Tranf: No Family Medical History Hypertension 19 FATHER Neoplasm G8 SISTER Prostate cancer 19 FATHER Other Conditions/Hx Physical Exam Vital Signs - First Documented 09/20/21 09/20/21 08:17 08:32 Temp 38.2 Pulse 104 Resp 24 B/P (MAP) 155/105 (122) Pulse Ox 94 O2 Delivery Room Air Capillary Refill : Height: 6'1.00" Weight: 198lbs. 0.0oz. [id number]; 26.1 BMI Method:Stated General Appearance: WD/WN, no apparent distress Eyes: Bilateral Eye Normal Inspection, Bilateral Eye PERRL HEENT: PERRL/EOMI, normal ENT inspection, TMs normal, pharynx normal; No pharyngeal erythema, No tonsillar exudate; other (uvula midline, no voice changes) Neck: non-tender, full range of motion, supple, normal inspection Respiratory: chest non-tender, lungs clear, normal breath sounds, no respiratory distress, no accessory muscle use Cardiovascular: no edema, no murmur, tachycardia Gastrointestinal: normal bowel sounds, non tender, soft; No distended, No guarding, No rebound Extremities: normal range of motion, non-tender, normal inspection, no pedal edema, no calf tenderness, normal capillary refill Neurologic/Psychiatric: no motor/sensory deficits, alert, normal mood/affect Skin: normal color, warm/dry Lymphatic: no adenopathy Progress/Results/Core Measures Suspected Sepsis SIRS Temperature: Pulse: Respiratory Rate: Laboratory Tests 09/20/21 08:14: White Blood Count 15.5H Blood Pressure / Mean: Laboratory Tests 09/20/21 08:14: Creatinine 0.85, Platelet Count 214, Total Bilirubin 1.1H Results/Orders Lab Results Laboratory Tests Test 09/20/21 07:53 09/20/21 08:14 Range/Units Influenza Type A (RT-PCR) Not Detected Not Detecte Influenza Type B (RT-PCR) Not Detected Not Detecte SARS-CoV-2 RNA (RT-PCR) Not Detected Not Detecte White Blood Count 15.5 H 4.3-11.0 10^3/uL Red Blood Count 4.72 4.30-5.52 10^6/uL Hemoglobin 15.1 13.3-17.7 g/dL Hematocrit 43 40-54 % Mean Corpuscular Volume 90 80-99 fL Mean Corpuscular Hemoglobin 32 25-34 pg Mean Corpuscular Hemoglobin Concent 35 32-36 g/dL Red Cell Distribution Width 13.2 10.0-14.5 % Platelet Count 214 130-400 10^3/uL Mean Platelet Volume 9.5 9.0-12.2 fL Immature Granulocyte % (Auto) 1 % Neutrophils (%) (Auto) 88 H 42-75 % Lymphocytes (%) (Auto) 2 L 12-44 % Monocytes (%) (Auto) 10 0-12 % Eosinophils (%) (Auto) 0 0-10 % Basophils (%) (Auto) 0 0-10 % Neutrophils # (Auto) 13.6 H 1.8-7.8 10^3/uL Lymphocytes # (Auto) 0.3 L 1.0-4.0 10^3/uL Monocytes # (Auto) 1.5 H 0.0-1.0 10^3/uL Eosinophils # (Auto) 0.0 0.0-0.3 10^3/uL Basophils # (Auto) 0.0 0.0-0.1 10^3/uL Immature Granulocyte # (Auto) 0.1 0.0-0.1 10^3/uL Neutrophils % (Manual) 82 % Lymphocytes % (Manual) 6 % Monocytes % (Manual) 10 % Eosinophils % (Manual) 0 % Basophils % (Manual) 0 % Band Neutrophils 2 % Blood Morphology Comment NORMAL Sodium Level 138 135-145 MMOL/L Potassium Level 3.3 L 3.6-5.0 MMOL/L Chloride Level 104 98-107 MMOL/L Carbon Dioxide Level 20 L 21-32 MMOL/L Anion Gap 14 5-14 MMOL/L Blood Urea Nitrogen 12 7-18 MG/DL Creatinine 0.85 0.60-1.30 MG/DL Estimat Glomerular Filtration Rate 107 BUN/Creatinine Ratio 14 Glucose Level 126 H 70-105 MG/DL Calcium Level 8.9 8.5-10.1 MG/DL Corrected Calcium 8.9 8.5-10.1 MG/DL Total Bilirubin 1.1 H 0.1-1.0 MG/DL Aspartate Amino Transf (AST/SGOT) 20 5-34 U/L Alanine Aminotransferase (ALT/SGPT) 26 0-55 U/L Alkaline Phosphatase 91 40-136 U/L Total Protein 7.6 6.4-8.2 GM/DL Albumin 4.0 3.2-4.5 GM/DL My Orders Orders - PAULY CISNEROS MD Cbc With Automated Diff (09/20/21 07:55) Comprehensive Metabolic Panel (09/20/21 07:55) Influenza A And B By Pcr (09/20/21 07:55) Ed Iv/Invasive Line Start (09/20/21 07:55) Lactated Ringers (Lr 1000 Ml Iv Solution (09/20/21 08:00) Chest 1 View, Ap/Pa Only (09/20/21 07:55) Covid 19 Inhouse Test (09/20/21 07:55) Ondansetron Injection (Zofran Injectio (09/20/21 08:00) Acetaminophen Tablet (Tylenol Tablet) (09/20/21 08:00) Manual Differential (09/20/21 08:14) Medications Given in ED Current Medications Medications Dose Ordered Sig/Michelle Route Start Time Stop Time Status Last Admin Dose Admin Acetaminophen 1,000 mg ONCE ONCE PO 09/20/21 08:00 09/20/21 08:01 DC 09/20/21 08:17 1,000 MG Lactated Ringer's 1,000 ml @ 0 mls/hr Q0M ONCE IV 09/20/21 08:00 09/20/21 08:01 DC 09/20/21 08:17 999 MLS/HR Ondansetron HCl 4 mg ONCE ONCE IVP 09/20/21 08:00 09/20/21 08:01 DC 09/20/21 08:16 4 MG Vital Signs/I&O 09/20/21 09/20/21 08:17 08:32 Temp 38.2 38.2 Pulse 104 Resp 24 B/P (MAP) 155/105 (122) Pulse Ox 94 O2 Delivery Room Air Capillary Refill : Progress Note : Progress Note 50-year-old male with above history coming in due to cough, sore throat, fever. ABCs were intact and vitals were stable on presentation although he is febrile and mildly tachycardic. An IV was placed and he was given a bolus of IV fluids as well as Tylenol. Flu and COVID testing sent and were negative. He does have an elevated white blood cell count as well as a mild lymphopenia which would fit a viral infection. Chest x-ray with no obvious focal pneumonia on my interpretation. Additionally, he said he has been camping in the [facility], has been exposed to ticks, and symptoms started shortly after the camping trip. We will treat him empirically with doxycycline. I believe he is stable for discharge with outpatient follow-up. He was sent home with strict return precautions Diagnostic Imaging Diagonstic Imaging: Xray Plain Films/CT/US/NM/MRI: chest Comments NAME: DOMENICO LIMON [facility] REC#: [id number] PT STATUS: REG ER : 1970 PHYSICIAN: PAULY CISNEROS MD ADMIT DATE: 09/20/21/ER Draft Date of Exam:09/20/21 CHEST 1 VIEW, AP/PA ONLY INDICATION: Cough and fever. Frontal chest obtained at 08:50 a.m. compared to 03/27/2020. FINDINGS: Heart and mediastinal silhouette are normal in appearance. The lungs are clear. There is no pneumothorax or pleural fluid. IMPRESSION: Negative chest. Dictated on workstation # [id number] Dict: 09/20/21 0852 Trans: 09/20/21 0854 [id number] Interpreted by: DMITRY CAMILO MD Electronically signed by: Departure Impression Primary Impression: Fever Qualified Codes: R50.81 - Fever presenting with conditions classified elsewhere Additional Impression: At high risk for tick borne illness Disposition: HOME, SELF-CARE Condition: Stable Departure-Patient Inst. Decision time for Depature: 08:59 Referrals: ZAIN DALAL MD (PCP/Family) Primary Care Physician Patient Instructions: Fever, Adult ED Add. Discharge Instructions: We will treat with antibiotics for potential tick bite given you are outside and have fever. Take Tylenol as needed for fever and sore throat. Follow-up with your regular doctor if you are not improving in the next 5 days. Scripts Doxycycline Hyclate (Doxycycline Hyclate) 100 Mg Tablet 100 MG PO BID for 10 Days, #20 TAB 0 Refills Prov: PAULY CISNEROS MD 09/20/21 Work/School Note: Work Release Form Date Seen in the Emergency Department: Sep 20, 2021 Return to Work: Sep 23, 2021 Restrictions: Return-No Fever (24hrs) PAULY CISNEROS MD Sep 20, 2021 08:00
[2021-09-20 08:21] LABS: BASOPHILS % (AUTO) 0 % (0-10); EOSINOPHILS % (AUTO) 0 % (0-10); HEMATOCRIT 43 % (40-54); HEMOGLOBIN 15.1 g/dL (13.3-17.7); LYMPHOCYTES # (AUTO) 0.3 10^3/uL (1.0-4.0); LYMPHOCYTES % (AUTO) 2 % (12-44); MEAN CORPUSCULAR HEMOGLOBIN 32 pg (25-34); MEAN CORPUSCULAR HGB CONC 35 g/dL (32-36); MEAN CORPUSCULAR VOLUME 90 fL (80-99); MEAN PLATELET VOLUME 9.5 fL (9.0-12.2); MONOCYTES # (AUTO) 1.5 10^3/uL (0.0-1.0); MONOCYTES % (AUTO) 10 % (0-12); NEUTROPHILS # (AUTO) 13.6 10^3/uL (1.8-7.8); NEUTROPHILS % (AUTO) 88 % (42-75); PLATELET COUNT 214 10^3/uL (130-400); WHITE BLOOD COUNT 15.5 10^3/uL (4.3-11.0)
[2021-09-20 08:37] LABS: POTASSIUM 3.3 MMOL/L (3.6-5.0)
[2021-09-20 08:38] LABS: CALCIUM 8.9 MG/DL (8.5-10.1)
[2021-09-20 08:39] LABS: BAND NEUTROPHILS 2 %; BASOPHILS % (MANUAL) 0 %; EOSINOPHILS % (MANUAL) 0 %; LYMPHOCYTES % (MANUAL) 6 %; MONOCYTES % (MANUAL) 10 %; NEUTROPHILS % (MANUAL) 82 %; TOTAL PROTEIN 7.6 GM/DL (6.4-8.2)
[2021-09-20 08:40] LABS: RBC MORPH NORMAL
[2021-09-20 08:41] LABS: BILIRUBIN,TOTAL 1.1 MG/DL (0.1-1.0)
[2021-09-20 08:43] LABS: CREATININE SERUM 0.85 MG/DL (0.60-1.30)
--- NOTE | 2021-09-20 08:55 | Diagnostic Imaging Report ---
INDICATION: Cough and fever. Frontal chest obtained at 08:50 a.m. compared to 03/27/2020. FINDINGS: Heart and mediastinal silhouette are normal in appearance. The lungs are clear. There is no pneumothorax or pleural fluid. IMPRESSION: Negative chest. Dictated by: Dictated on workstation # [id number]
[2021-09-20] MEDS ORDERED: DOXY100T2 PO (08:59)
[2021-09-20 09:09] VITALS: BP 148/99
== END 2021-09-20 09:07 | disposition home or self-care (01) ==
LOC: EDUNIT# 07:39 → ER 07:41
DX: R05.9 Cough, unspecified (principal); Z20.822 Contact with and (suspected) exposure to COVID-19
CPT/HCPCS: 36415; 71045; 80053; 85007; 85027; 87636